=== PATIENT | female | born 2000 | race Caucasian/White ===

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

== ENCOUNTER 2021-05-15 14:00 | Emergency (ER) | payer MEDICAID ==
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
[2021-05-15] MEDS ORDERED: KETAMINE 500 MG/10 ML VIAL IM STA (16:03)
--- NOTE | 2021-05-15 16:28 | ED Physician Documentation ---
Face to Face for Restraints - Immediate Situation Face to Face Evaluation Date: 05/15/21 Face to Face Evaluation Time: 16:45 Restraint Situation: Chemical Patient's Reactions to the Intervention: Physically safe - Behavioral Condition Attitude: Other (resting, asleep, unlabored) Behavior: Other (asleep, safe) Orientation: Non-responsive (sleeping) Mood: Other (sleeping) Behavioral Condition Comments: appropriate response to ketamine, resting quietly - Evaluation Review of Systems: respirations unlabored, 99% room air. HR 100. BP 117/80 Pertinent History/Illicit Drugs/Medications/Results: High functioning autism; unremarkable labs 3 days ago including UDS - Plan Need to Continue or Terminate Violent or Chemical Restraint: We will continue to evaluate behavior once the ketamine has worn off. However she has been re-directable with her dad and brother at the bedside.
[2021-05-15 16:30] LABS: BASOPHILS # (AUTO) 0.1 10^3/uL (0.0-0.1); BASOPHILS % (AUTO) 0.6 %; EOSINOPHILS # (AUTO) 0.1 10^3/uL (0.0-0.7); EOSINOPHILS % (AUTO) 1.4 %; HCT - HEMATOCRIT 39.9 % (37.0-47.0); HGB - HEMOGLOBIN 13.1 g/dL (12.0-16.0); LYMPHOCYTES # (AUTO) 3.2 10^3/uL (1.5-3.5); LYMPHOCYTES % (AUTO) 32.6 %; MEAN CORPUSCULAR HEMOGLOBIN 28.3 pg (27.0-31.0); MEAN CORPUSCULAR HGB CONC 32.8 g/dL (32.0-36.0); MEAN CORPUSCULAR VOLUME 86.2 fL (81.0-99.0); MEAN PLATELET VOLUME 9.5 fL (7.9-10.8); MONOCYTES % (AUTO) 10.3 %; NEUTROPHILS # (AUTO) 5.4 10^3/uL (1.5-6.6); NEUTROPHILS % (AUTO) 54.7 %; PLT - PLATELET COUNT 321 10^3/uL (130-450); RED BLOOD COUNT 4.63 10^6/uL (4.20-5.40); RED CELL DISTRIBUTION WIDTH 12.4 % (12.0-15.0); WHITE BLOOD COUNT 9.9 x10^3/uL (4.8-10.8)
[2021-05-15] MEDS ORDERED: SODIUM CHLORIDE 0.9% 1,000 ML IV STA ×2 (16:30→16:56)
[2021-05-15 16:38] LABS: MUDS CUTOFF CONCENTRATIONS CUTOFF CONC BELOW:
[2021-05-15 16:44] LABS: ACETAMINOPHEN < 10 ug/mL (10-30); ALBUMIN 5.6 g/dL (3.2-5.5); ALBUMIN/GLOBULIN RATIO 1.6 (1.0-2.2); ALKALINE PHOSPHATASE 48 IU/L (42-121); ALT ALANINE AMINOTRANSFERASE 17 IU/L (10-60); AST ASPARTATE AMINOTRANSFERASE 35 IU/L (10-42); BILIRUBIN,TOTAL 0.7 mg/dL (0.2-1.0); BUN - BLOOD UREA NITROGEN 19 mg/dL (6-20); CALCIUM 9.8 mg/dL (8.5-10.3); CARBON DIOXIDE - CO2 24 mmol/L (21-32); CHLORIDE 101 mmol/L (101-111); CREATININE 0.8 mg/dL (0.4-1.0); ETOH - ETHANOL < 5.0 mg/dL; GFR - MDRD 91 (>89); GLUCOSE 103 mg/dL (70-100); LIPASE 35 U/L (22-51); POTASSIUM 3.3 mmol/L (3.5-5.0); SALICYLATE < 6.0 mg/dL; SODIUM 140 mmol/L (135-145)
[2021-05-15 16:46] LABS: BILIRUBIN,URINE NEGATIVE (NEGATIVE); GLUCOSE, URINE (UA) NEGATIVE (NEGATIVE); KETONES,URINE (UA) 40 mg/dL (NEGATIVE); LEUKOCYTE ESTERASE, URINE NEGATIVE (NEGATIVE); NITRITE,URINE POSITIVE (NEGATIVE); OCCULT BLOOD,URINE NEGATIVE (NEGATIVE); PROTEIN,URINE 30 mg/dL (NEGATIVE); UROBILINOGEN,URINE 1 (NORMAL) E.U./dL (NORMAL)
[2021-05-15 16:48] LABS: CLARITY,URINE CLEAR (CLEAR)
[2021-05-15 16:50] LABS: HCG UR QUAL NEGATIVE
[2021-05-15 16:56] LABS: AMPHETAMINE SCREEN,URINE NEGATIVE (NEGATIVE); BARBITURATE SCREEN,UR NEGATIVE (NEGATIVE); BENZODIAZEPINES SCREEN, URINE NEGATIVE (NEGATIVE); COCAINE SCREEN URINE NEGATIVE (NEGATIVE); METHADONE SCREEN, URINE NEGATIVE (NEGATIVE); METHAMPHETAMINES SCREEN, URINE NEGATIVE (NEGATIVE); OPIATE SCREEN, URINE NEGATIVE (NEGATIVE); OXYCODONE SCREEN, URINE NEGATIVE (NEGATIVE); PROPOXYPHENE SCREEN, URINE NEGATIVE (NEGATIVE); THC CANNABINOID SCREEN, URINE NEGATIVE (NEGATIVE); TRICYCLIC ANTIDEPRESSANT,URINE NEGATIVE (NEGATIVE)
[2021-05-15] MEDS ORDERED: cefTRIAXone 1 GM VIAL IVP STA (16:56)
[2021-05-15 16:59] LABS: BACTERIA,URINE Many /HPF (None Seen); RBC,URINE 0-5 /HPF (0-5); SQUAMOUS EPITHELIAL CELL,UR RARE Squamous (<= Few); WBC,URINE 0-3 /HPF (0-5)
[2021-05-15 17:19] LABS: B. PARAPERTUSSIS- RESP PCR PAN NOT DETECTED; B. PERTUSSIS- RESP PCR PANEL NOT DETECTED; C. PNEUMONIAE- RESP PCR PANEL NOT DETECTED; CORONAVIRUS 229E-RESP PCR NOT DETECTED; CORONAVIRUS HKU1-RESP PCR NOT DETECTED; CORONAVIRUS NL63-RESP PCR NOT DETECTED; CORONAVIRUS OC43-RESP PCR NOT DETECTED; HUMAN METAPNEUMOVIRUS NOT DETECTED; INFLUENZA A- RESP PCR PANEL NOT DETECTED; INFLUENZA B - RESP PCR PANEL NOT DETECTED; M. PNEUMONIAE- RESP PCR PANEL NOT DETECTED; PARAINFLUENZA VIRUS 1 NOT DETECTED; PARAINFLUENZA VIRUS 2 NOT DETECTED; PARAINFLUENZA VIRUS 3 NOT DETECTED; PARAINFLUENZA VIRUS 4 NOT DETECTED; RHINOVIRUS/ENTEROVIRUS NOT DETECTED; RSV- RESP PCR PANEL NOT DETECTED; SARS-CoV-2 -RESP PCR PANEL NOT DETECTED
[2021-05-15] MEDS ORDERED: POTASSIUM CHLORIDE 20 MEQ TABLET PO STA (18:50)
[2021-05-15] MEDS ORDERED: ACETAMINOPHEN 325 MG TABLET PO STA (19:08)
[2021-05-15] MEDS ORDERED: ONDANSETRON ODT 4 MG TABLET TL STA (21:53)
--- NOTE | 2021-05-16 02:38 | ED Physician Documentation ---
ED Addendum - Addendum Addendum: 05/16/21 02:36 Patient's CK is mildly uptrending however she is completely asymptomatic and CK does not meet criteria for rhabdomyolysis (5 times upper limit of normal) therefore we will medically clear the patient and go forward with psychiatric admission as discussed with harley Cannon. Dispo Psychiatric inpatient care Impression 1. depression 2. suicidal ideation
[2021-05-16 08:37] VITALS: BP 111/73
== END 2021-05-16 09:00 ==
LOC: ED 14:00
DX: F23 Brief psychotic disorder (principal); F32.A Depression, unspecified; R45.851 Suicidal ideations; R45.850 Homicidal ideations; F84.0 Autistic disorder; N30.90 Cystitis, unspecified without hematuria; R79.89 Other specified abnormal findings of blood chemistry; R00.0 Tachycardia, unspecified; Z20.822 Contact with and (suspected) exposure to COVID-19; Z78.1 Physical restraint status
CPT/HCPCS: 0202U; 36415; 51701; 80053; 80306; 80307; 80320; 80329; 81001; 81025; 82550; 83690; 84443; 85025; 87086; 93005; 96374; 99283; 99285; A9270; Q0162; 81003

== ENCOUNTER 2022-07-16 12:30 | Outpatient (CLI) | payer MEDICAID | END 2022-07-16 12:31 | disposition critical access hospital (66) | LOC: EMS 12:30 | DX: R46.89 Other symptoms and signs involving appearance and behavior (principal); R41.82 Altered mental status, unspecified; T68.XXXA Hypothermia, initial encounter; X31.XXXA Exposure to excessive natural cold, initial encounter | CPT/HCPCS: A0425; A0429; A0999 ==

== ENCOUNTER 2022-07-16 12:50 | Emergency (ER) | payer MEDICAID ==
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
[2022-07-16 13:21] VITALS: BP 126/88
== END 2022-07-16 13:48 | disposition home or self-care (01) ==
LOC: EDUNIT# → ED 12:50
DX: Z00.8 Encounter for other general examination (principal); F84.0 Autistic disorder
CPT/HCPCS: 99283

== ENCOUNTER 2022-08-22 14:47 | Outpatient (CLI) | payer MEDICAID | END 2022-08-22 23:59 | disposition critical access hospital (66) | LOC: EMS 14:47 | DX: T68.XXXA Hypothermia, initial encounter (principal); X31.XXXA Exposure to excessive natural cold, initial encounter; Y92.832 Beach as the place of occurrence of the external cause | CPT/HCPCS: A0425; A0429; A0999 ==

== ENCOUNTER 2022-08-22 15:39 | Emergency (ER) | payer MEDICAID ==
--- OUTSIDE RECORDS SUMMARY | 2022-08-22 15:57 | EXTERNAL MEDICAL SUMMARY RPT | Continuity of Care Document ---
:2000 Author Organization [facility] Address [address] [place] [address] Phone Care Team Providers Name Role Phone Chago Faye Unavailable Unavailable Allergies No information. Encounters No information. Functional Status No information. Immunizations No information. Medications No information. Problems date description facility 2022-08-22 00:00 [facility] Procedures No information. Results/Labs test date author facility value unit interpret ation Result panel 1 (unknown) (no (unknown) (unknown) (no value) (units (unk nown) date) unknown) (unknown) (no (unknown) (unknown) 08/22/22 (units (unkno wn) date) unknown) (unknown) (no (unknown) (unknown) 21-year-old woman (units (unknown) date) with history of unknown) PTSD, autism, and cognitive delay who lives at (unknown) (no (unknown) (unknown) [id number] (units (unkno wn) date) unknown) (unknown) (no (unknown) (unknown) Age/Sex: 21 / F (units (unknown) date) Date of Service: unknown) (unknown) (no (unknown) (unknown) Allergies (units (unkn own) date) unknown) (unknown) (no (unknown) (unknown) [place], [place] (units ( unknown) date) [id number] unknown) (unknown) (no (unknown) (unknown) Attending Dr: (units ( unknown) date) Chago Faye D.O. unknown) (unknown) (no (unknown) (unknown) Autism (units (unkno wn) date) unknown) (unknown) (no (unknown) (unknown) Chief Complaint (units (unknown) date) unknown) (unknown) (no (unknown) (unknown) Chief Complaint: (units (unknown) date) Establish care unknown) (unknown) (no (unknown) (unknown) Conjunctivae: (units ( unknown) date) conjunctivae unknown) normal (unknown) (no (unknown) (unknown) : 2000 (units (unknown) date) Acct:[id number] unknown) (unknown) (no (unknown) (unknown) Dept at (units (unkno wn) date) . unknown) (unknown) (no (unknown) (unknown) Details: (units (unkno wn) date) unknown) (unknown) (no (unknown) (unknown) Documented By: (units (unknown) date) Chago Faye D.O. unknown) 08/22/22 1134 (unknown) (no (unknown) (unknown) Draft (units (unkno wn) date) unknown) (unknown) (no (unknown) (unknown) Exam Narrative (units (unknown) date) unknown) (unknown) (no (unknown) (unknown) Exam Narrative: (units (unknown) date) unknown) (unknown) (no (unknown) (unknown) Exam (units (unkno wn) date) unknown) (unknown) (no (unknown) (unknown) Eyelids: eyelids (units (unknown) date) normal unknown) (unknown) (no (unknown) (unknown) Eyes (units (unkno wn) date) unknown) (unknown) (no (unknown) (unknown) [facility] (units (unknown) date) Office Visit unknown) (unknown) (no (unknown) (unknown) [facility] ([facility]) (unknown) (no (unknown) (unknown) General: (units (unkno wn) date) appearance unknown) normal, both eyes and all related structures (unknown) (no (unknown) (unknown) General: (units (unkno wn) date) cooperative, unknown) healthy appearing and comfortable (unknown) (no (unknown) (unknown) HENMT (units (unkno wn) date) unknown) (unknown) (no (unknown) (unknown) HPI (units (unkno wn) date) unknown) (unknown) (no (unknown) (unknown) Head: normal to (units (unknown) date) inspection unknown) (unknown) (no (unknown) (unknown) Intake (units (unkno wn) date) unknown) (unknown) (no (unknown) (unknown) Loc: [facility] (units (unkno wn) date) unknown) (unknown) (no (unknown) (unknown) Medical History (units (unknown) date) (Reviewed unknown) 05/15/21 @ 05:02 by Meenakshi Madsen MD) (unknown) (no (unknown) (unknown) Neck: normal (units (u nknown) date) visual inspection unknown) (unknown) (no (unknown) (unknown) Neuro: alert and (units (unknown) date) oriented x3, unknown) normal cognition, speech normal, normal gait (unknown) (no (unknown) (unknown) No Known Drug (units ( unknown) date) Allergies Allergy unknown) (Verified 05/14/21 23:49) (unknown) (no (unknown) (unknown) Nose: external (units (unknown) date) nose normal unknown) (unknown) (no (unknown) (unknown) Orientation: (units (u nknown) date) alert and unknown) oriented x3 (unknown) (no (unknown) (unknown) PFSH (units (unkno wn) date) unknown) (unknown) (no (unknown) (unknown) PTSD (units (unkno wn) date) (post-traumatic unknown) stress disorder) (unknown) (no (unknown) (unknown) Patient: (units (unkno wn) date) Siobhan Mercado unknown) MR#: [id number] (unknown) (no (unknown) (unknown) Psych: grossly (units (unknown) date) normal and well unknown) kempt, mental status grossly normal, speech and (unknown) (no (unknown) (unknown) Reason For Visit (units (unknown) date) unknown) (unknown) (no (unknown) (unknown) Resp: normal (units (u nknown) date) respiratory unknown) effort and able to speak in complete sentences (unknown) (no (unknown) (unknown) Sclera: sclerae (units (unknown) date) normal unknown) (unknown) (no (unknown) (unknown) Signed By: (units (unk nown) date) unknown) (unknown) (no (unknown) (unknown) Skin: no rashes (units (unknown) date) or lesions noted unknown) (unknown) (no (unknown) (unknown) Smoking Status: (units (unknown) date) Never smoker unknown) (unknown) (no (unknown) (unknown) This note may (units ( unknown) date) have been all or unknown) partially generated using voice recognition (unknown) (no (unknown) (unknown) Tobacco + (units (unkn own) date) Substance Use unknown) (unknown) (no (unknown) (unknown) Tobacco Status (units (unknown) date) unknown) (unknown) (no (unknown) (unknown) Visit Reasons: (units (unknown) date) [facility] Mental unknown) health-*sae Faye (unknown) (no (unknown) (unknown) have occurred. (units (unknown) date) If there are any unknown) questions, please contact the Medical Records (unknown) (no (unknown) (unknown) home with her (units ( unknown) date) parents presents unknown) to establish care with concern today for (unknown) (no (unknown) (unknown) may occur. (units (unk nown) date) Occasional unknown) wrong-word or 'sound-alike' substitutions may have (unknown) (no (unknown) (unknown) movement normal, (units (unknown) date) congruent mood unknown) (unknown) (no (unknown) (unknown) occurred due to (units (unknown) date) the inherent unknown) limitations of voice recognition software. Please (unknown) (no (unknown) (unknown) read the note (units ( unknown) date) carefully and unknown) recognize, using context, where these substitutions (unknown) (no (unknown) (unknown) software. (units (unkn own) date) Although every unknown) effort is made to edit content, time study clerk errors Result panel 2 (unknown) (no (unknown) (unknown) (no value) (units (unk nown) date) unknown) (unknown) (no (unknown) (unknown) 08/22/22 (units (unkno wn) date) unknown) (unknown) (no (unknown) (unknown) 21-year-old woman (units (unknown) date) with history of unknown) PTSD, autism, and cognitive delay who lives at (unknown) (no (unknown) (unknown) [id number] (units (unkno wn) date) unknown) (unknown) (no (unknown) (unknown) Accompanied by: (units (unknown) date) Father unknown) (unknown) (no (unknown) (unknown) Age/Sex: 21 / F (units (unknown) date) Date of Service: unknown) (unknown) (no (unknown) (unknown) Allergies (units (unkn own) date) unknown) (unknown) (no (unknown) (unknown) [place], [place] (units ( unknown) date) [id number] unknown) (unknown) (no (unknown) (unknown) Attending Dr: (units ( unknown) date) Chago Faye D.O. unknown) (unknown) (no (unknown) (unknown) Autism (units (unkno wn) date) unknown) (unknown) (no (unknown) (unknown) Chief Complaint (units (unknown) date) unknown) (unknown) (no (unknown) (unknown) Chief Complaint: (units (unknown) date) Establish care unknown) (unknown) (no (unknown) (unknown) Conjunctivae: (units ( unknown) date) conjunctivae unknown) normal (unknown) (no (unknown) (unknown) : 2000 (units (unknown) date) Acct:[id number] unknown) (unknown) (no (unknown) (unknown) Dept at (units (unkno wn) date) . unknown) (unknown) (no (unknown) (unknown) Details: (units (unkno wn) date) unknown) (unknown) (no (unknown) (unknown) Documented By: (units (unknown) date) Chago Faye D.O. unknown) 08/22/22 1134 (unknown) (no (unknown) (unknown) Draft (units (unkno wn) date) unknown) (unknown) (no (unknown) (unknown) Exam Narrative (units (unknown) date) unknown) (unknown) (no (unknown) (unknown) Exam Narrative: (units (unknown) date) unknown) (unknown) (no (unknown) (unknown) Exam (units (unkno wn) date) unknown) (unknown) (no (unknown) (unknown) Eyelids: eyelids (units (unknown) date) normal unknown) (unknown) (no (unknown) (unknown) Eyes (units (unkno wn) date) unknown) (unknown) (no (unknown) (unknown) Family Practice (units (unknown) date) Office Visit unknown) (unknown) (no (unknown) (unknown) [facility] ([facility] unknown) (unknown) (no (unknown) (unknown) General: (units (unkno wn) date) appearance unknown) normal, both eyes and all related structures (unknown) (no (unknown) (unknown) General: (units (unkno wn) date) cooperative, unknown) healthy appearing and comfortable (unknown) (no (unknown) (unknown) HENMT (units (unkno wn) date) unknown) (unknown) (no (unknown) (unknown) HPI (units (unkno wn) date) unknown) (unknown) (no (unknown) (unknown) Head: normal to (units (unknown) date) inspection unknown) (unknown) (no (unknown) (unknown) Health (units (unkno wn) date) Management unknown) reviewed with patient: No (unknown) (no (unknown) (unknown) Health (units (unkno wn) date) Management unknown) (unknown) (no (unknown) (unknown) Intake Note: (units (u nknown) date) unknown) (unknown) (no (unknown) (unknown) Intake performed (units (unknown) date) by: unknown) Leonor Kaur (unknown) (no (unknown) (unknown) Intake (units (unkno wn) date) unknown) (unknown) (no (unknown) (unknown) Intake- Clincial (units (unknown) date) Staff unknown) (unknown) (no (unknown) (unknown) Loc: [facility] (units (unkno wn) date) unknown) (unknown) (no (unknown) (unknown) Medical History (units (unknown) date) (Reviewed unknown) 05/15/21 @ 05:02 by Meenakshi Madsen MD) (unknown) (no (unknown) (unknown) WIN[place] 21 yo female (units (unknown) date) presents today to unknown) establish care and discuss mental health (unknown) (no (unknown) (unknown) Neck: normal (units (u nknown) date) visual inspection unknown) (unknown) (no (unknown) (unknown) Neuro: alert and (units (unknown) date) oriented x3, unknown) normal cognition, speech normal, normal gait (unknown) (no (unknown) (unknown) No Known Drug (units ( unknown) date) Allergies Allergy unknown) (Verified 05/14/21 23:49) (unknown) (no (unknown) (unknown) Nose: external (units (unknown) date) nose normal unknown) (unknown) (no (unknown) (unknown) Orientation: (units (u nknown) date) alert and unknown) oriented x3 (unknown) (no (unknown) (unknown) PFSH (units (unkno wn) date) unknown) (unknown) (no (unknown) (unknown) PTSD (units (unkno wn) date) (post-traumatic unknown) stress disorder) (unknown) (no (unknown) (unknown) Patient: (units (unkno wn) date) Siobhan Mercado unknown) MR#: [id number] (unknown) (no (unknown) (unknown) Psych: grossly (units (unknown) date) normal and well unknown) kempt, mental status grossly normal, speech and (unknown) (no (unknown) (unknown) Reason For Visit (units (unknown) date) unknown) (unknown) (no (unknown) (unknown) Requesting (units (unk nown) date) psychiatrist for unknown) assessment for depression, anxiety, and tourrettes (unknown) (no (unknown) (unknown) Resp: normal (units (u nknown) date) respiratory unknown) effort and able to speak in complete sentences (unknown) (no (unknown) (unknown) Sclera: sclerae (units (unknown) date) normal unknown) (unknown) (no (unknown) (unknown) Signed By: (units (unk nown) date) unknown) (unknown) (no (unknown) (unknown) Skin: no rashes (units (unknown) date) or lesions noted unknown) (unknown) (no (unknown) (unknown) Smoking Status: (units (unknown) date) Never smoker unknown) (unknown) (no (unknown) (unknown) This note may (units ( unknown) date) have been all or unknown) partially generated using voice recognition (unknown) (no (unknown) (unknown) Tobacco + (units (unkn own) date) Substance Use unknown) (unknown) (no (unknown) (unknown) Tobacco Status (units (unknown) date) unknown) (unknown) (no (unknown) (unknown) Visit Reasons: (units (unknown) date) [facility] Mental unknown) health-*sae Faye (unknown) (no (unknown) (unknown) have occurred. (units (unknown) date) If there are any unknown) questions, please contact the Medical Records (unknown) (no (unknown) (unknown) home with her (units ( unknown) date) parents presents unknown) to establish care with concern today for (unknown) (no (unknown) (unknown) issues (units (unkno wn) date) unknown) (unknown) (no (unknown) (unknown) may occur. (units (unk nown) date) Occasional unknown) wrong-word or 'sound-alike' substitutions may have (unknown) (no (unknown) (unknown) movement normal, (units (unknown) date) congruent mood unknown) (unknown) (no (unknown) (unknown) occurred due to (units (unknown) date) the inherent unknown) limitations of voice recognition software. Please (unknown) (no (unknown) (unknown) read the note (units ( unknown) date) carefully and unknown) recognize, using context, where these substitutions (unknown) (no (unknown) (unknown) software. (units (unkn own) date) Although every unknown) effort is made to edit content, time study clerk errors Result panel 3 (unknown) (no (unknown) (unknown) (no value) (units (unk nown) date) unknown) (unknown) (no (unknown) (unknown) 08/22/22 (units (unkno wn) date) unknown) (unknown) (no (unknown) (unknown) 12:06 (units (unkno wn) date) unknown) (unknown) (no (unknown) (unknown) 21-year-old (units (un known) date) woman with unknown) history of PTSD, Tourette's behaviors, autism, and (unknown) (no (unknown) (unknown) [id number] (units (unkno wn) date) unknown) (unknown) (no (unknown) (unknown) Accompanied by: (units (unknown) date) Father unknown) (unknown) (no (unknown) (unknown) Age/Sex: 21 / F (units (unknown) date) Date of Service: unknown) (unknown) (no (unknown) (unknown) Allergies (units (unkn own) date) unknown) (unknown) (no (unknown) (unknown) [place] (units ( unknown) date) [id number] unknown) (unknown) (no (unknown) (unknown) Attending Dr: Christalunits ( unknown) date) Chago Faye D.O. unknown) (unknown) (no (unknown) (unknown) Autism (units (unkno wn) date) unknown) (unknown) (no (unknown) (unknown) BMI 17.2 (units (unkno wn) date) unknown) (unknown) (no (unknown) (unknown) BP 126/68 (units (unkn own) date) unknown) (unknown) (no (unknown) (unknown) Blood Pressure (units (unknown) date) Location Lt unknown) brachial (unknown) (no (unknown) (unknown) Chief Complaint (units (unknown) date) unknown) (unknown) (no (unknown) (unknown) Chief Complaint: (units (unknown) date) Establish care unknown) (unknown) (no (unknown) (unknown) Conjunctivae: (units ( unknown) date) conjunctivae unknown) normal (unknown) (no (unknown) (unknown) : 2000 (units (unknown) date) Acct:[id number] unknown) (unknown) (no (unknown) (unknown) Date of Last (units (u nknown) date) Menstrual Period: unknown) 08/08/22 (unknown) (no (unknown) (unknown) Dept at (units (unkno wn) date) . unknown) (unknown) (no (unknown) (unknown) Details: (units (unkno wn) date) unknown) (unknown) (no (unknown) (unknown) Documented By: (units (unknown) date) Chago Faye D.O. unknown) 08/22/22 1134 (unknown) (no (unknown) (unknown) Draft (units (unkno wn) date) unknown) (unknown) (no (unknown) (unknown) Due for pap (units (un known) date) smear unknown) (unknown) (no (unknown) (unknown) Exam Narrative (units (unknown) date) unknown) (unknown) (no (unknown) (unknown) Exam Narrative: (units (unknown) date) unknown) (unknown) (no (unknown) (unknown) Exam (units (unkno wn) date) unknown) (unknown) (no (unknown) (unknown) Eyelids: eyelids (units (unknown) date) normal unknown) (unknown) (no (unknown) (unknown) Eyes (units (unkno wn) date) unknown) (unknown) (no (unknown) (unknown) Family Practice (units (unknown) date) Office Visit unknown) (unknown) (no (unknown) (unknown) [facility] ([facility]) (unknown) (no (unknown) (unknown) General: (units (unkno wn) date) appearance unknown) normal, both eyes and all related structures (unknown) (no (unknown) (unknown) General: (units (unkno wn) date) cooperative, unknown) healthy appearing and comfortable (unknown) (no (unknown) (unknown) HENMT (units (unkno wn) date) unknown) (unknown) (no (unknown) (unknown) HPI (units (unkno wn) date) unknown) (unknown) (no (unknown) (unknown) Head: normal to (units (unknown) date) inspection unknown) (unknown) (no (unknown) (unknown) Health (units (unkno wn) date) Management unknown) reviewed with patient: No (unknown) (no (unknown) (unknown) Health (units (unkno wn) date) Management unknown) (unknown) (no (unknown) (unknown) Height 5 ft 9 in (units (unknown) date) unknown) (unknown) (no (unknown) (unknown) Intake Note: (units (u nknown) date) unknown) (unknown) (no (unknown) (unknown) Intake performed (units (unknown) date) by: unknown) Leonor Kaur (unknown) (no (unknown) (unknown) Intake (units (unkno wn) date) unknown) (unknown) (no (unknown) (unknown) Intake- Clincial (units (unknown) date) Staff unknown) (unknown) (no (unknown) (unknown) Last Menstural (units (unknown) date) Cycle + Details unknown) (unknown) (no (unknown) (unknown) Loc: [facility] (units (unkno wn) date) unknown) (unknown) (no (unknown) (unknown) Medical History (units (unknown) date) (Reviewed unknown) 05/15/21 @ 05:02 by Meenakshi Madsen MD) (unknown) (no (unknown) (unknown) Medications (units (un known) date) unknown) (unknown) (no (unknown) (unknown) [place] 21 yo female (units (unknown) date) presents today to unknown) establish care and discuss mental health (unknown) (no (unknown) (unknown) Neck: normal (units (u nknown) date) visual inspection unknown) (unknown) (no (unknown) (unknown) Neuro: alert and (units (unknown) date) oriented x3, unknown) normal cognition, speech normal, normal gait (unknown) (no (unknown) (unknown) No Known Drug (units ( unknown) date) Allergies Allergy unknown) (Verified 08/22/22 12:06) (unknown) (no (unknown) (unknown) No Known Home (units ( unknown) date) Medications unknown) 08/22/22 [History Confirmed 08/22/22] (unknown) (no (unknown) (unknown) Nose: external (units (unknown) date) nose normal unknown) (unknown) (no (unknown) (unknown) Orientation: (units (u nknown) date) alert and unknown) oriented x3 (unknown) (no (unknown) (unknown) Oxygen Delivery (units (unknown) date) Method room air unknown) (unknown) (no (unknown) (unknown) PFSH (units (unkno wn) date) unknown) (unknown) (no (unknown) (unknown) PTSD (units (unkno wn) date) (post-traumatic unknown) stress disorder) (unknown) (no (unknown) (unknown) Patient: (units (unkno wn) date) Siobhan Mercado unknown) MR#: [id number] (unknown) (no (unknown) (unknown) Position Sitting (units (unknown) date) unknown) (unknown) (no (unknown) (unknown) Psych: grossly (units (unknown) date) normal and well unknown) kempt, mental status grossly normal, speech and (unknown) (no (unknown) (unknown) Pulse 95 H (units (unk nown) date) unknown) (unknown) (no (unknown) (unknown) Pulse Oximetry (units (unknown) date) (%) 97 unknown) (unknown) (no (unknown) (unknown) Pulse Source (units (u nknown) date) Monitor unknown) (unknown) (no (unknown) (unknown) Reason For Visit (units (unknown) date) unknown) (unknown) (no (unknown) (unknown) Requesting (units (unk nown) date) psychiatrist for unknown) assessment for depression, anxiety, and tourrettes (unknown) (no (unknown) (unknown) Resp: normal (units (u nknown) date) respiratory unknown) effort and able to speak in complete sentences (unknown) (no (unknown) (unknown) Sclera: sclerae (units (unknown) date) normal unknown) (unknown) (no (unknown) (unknown) Signed By: (units (unk nown) date) unknown) (unknown) (no (unknown) (unknown) Skin: no rashes (units (unknown) date) or lesions noted unknown) (unknown) (no (unknown) (unknown) Smoking Status: (units (unknown) date) Never smoker unknown) (unknown) (no (unknown) (unknown) Temp 96.6 F L (units ( unknown) date) unknown) (unknown) (no (unknown) (unknown) Temp Source Skin (units (unknown) date) unknown) (unknown) (no (unknown) (unknown) This note may (units ( unknown) date) have been all or unknown) partially generated using voice recognition (unknown) (no (unknown) (unknown) Tobacco + (units (unkn own) date) Substance Use unknown) (unknown) (no (unknown) (unknown) Tobacco Status (units (unknown) date) unknown) (unknown) (no (unknown) (unknown) Visit Reasons: (units (unknown) date) WINDL[facility] Mental unknown) health-*sae Faye (unknown) (no (unknown) (unknown) Vitals (units (unkno wn) date) unknown) (unknown) (no (unknown) (unknown) Weight 117 lb (units ( unknown) date) unknown) (unknown) (no (unknown) (unknown) cognitive delay (units (unknown) date) who lives at home unknown) with her parents presents to establish care (unknown) (no (unknown) (unknown) have occurred. (units (unknown) date) If there are any unknown) questions, please contact the Medical Records (unknown) (no (unknown) (unknown) issues (units (unkno wn) date) unknown) (unknown) (no (unknown) (unknown) may occur. (units (unk nown) date) Occasional unknown) wrong-word or 'sound-alike' substitutions may have (unknown) (no (unknown) (unknown) movement normal, (units (unknown) date) congruent mood unknown) (unknown) (no (unknown) (unknown) occurred due to (units (unknown) date) the inherent unknown) limitations of voice recognition software. Please (unknown) (no (unknown) (unknown) read the note (units ( unknown) date) carefully and unknown) recognize, using context, where these substitutions (unknown) (no (unknown) (unknown) software. (units (unkn own) date) Although every unknown) effort is made to edit content, time study clerk errors (unknown) (no (unknown) (unknown) with concern (units (u nknown) date) today for unknown) Result panel 4 (unknown) (no (unknown) (unknown) (no value) (units (unk nown) date) unknown) (unknown) (no (unknown) (unknown) 08/22/22 (units (unkno wn) date) unknown) (unknown) (no (unknown) (unknown) 12:06 (units (unkno wn) date) unknown) (unknown) (no (unknown) (unknown) 21-year-old (units (un known) date) woman with unknown) history of PTSD, Tourette's behaviors, autism, and (unknown) (no (unknown) (unknown) [id number] (units (unkno wn) date) unknown) (unknown) (no (unknown) (unknown) Accompanied by: (units (unknown) date) Father unknown) (unknown) (no (unknown) (unknown) Age/Sex: 21 / F (units (unknown) date) Date of Service: unknown) (unknown) (no (unknown) (unknown) Allergies (units (unkn own) date) unknown) (unknown) (no (unknown) (unknown) [place] (units ( unknown) date) [id number] unknown) (unknown) (no (unknown) (unknown) Attending Dr: (units ( unknown) date) Chago Faye D.O. unknown) (unknown) (no (unknown) (unknown) Autism (units (unkno wn) date) unknown) (unknown) (no (unknown) (unknown) BMI 17.2 (units (unkno wn) date) unknown) (unknown) (no (unknown) (unknown) BP 126/68 (units (unkn own) date) unknown) (unknown) (no (unknown) (unknown) Blood Pressure (units (unknown) date) Location Lt unknown) brachial (unknown) (no (unknown) (unknown) Chief Complaint (units (unknown) date) unknown) (unknown) (no (unknown) (unknown) Chief Complaint: (units (unknown) date) Establish care unknown) (unknown) (no (unknown) (unknown) Conjunctivae: (units ( unknown) date) conjunctivae unknown) normal (unknown) (no (unknown) (unknown) : 2000 (units (unknown) date) Acct:[id number] unknown) (unknown) (no (unknown) (unknown) Date of Last (units (u nknown) date) Menstrual Period: unknown) 08/08/22 (unknown) (no (unknown) (unknown) Dept at (units (unkno wn) date) . unknown) (unknown) (no (unknown) (unknown) Details: (units (unkno wn) date) unknown) (unknown) (no (unknown) (unknown) Documented By: (units (unknown) date) Chago Faye D.O. unknown) 08/22/22 1134 (unknown) (no (unknown) (unknown) Draft (units (unkno wn) date) unknown) (unknown) (no (unknown) (unknown) Due for pap (units (un known) date) smear unknown) (unknown) (no (unknown) (unknown) Exam Narrative (units (unknown) date) unknown) (unknown) (no (unknown) (unknown) Exam Narrative: (units (unknown) date) unknown) (unknown) (no (unknown) (unknown) Exam (units (unkno wn) date) unknown) (unknown) (no (unknown) (unknown) Eyelids: eyelids (units (unknown) date) normal unknown) (unknown) (no (unknown) (unknown) Eyes (units (unkno wn) date) unknown) (unknown) (no (unknown) (unknown) Family Practice (units (unknown) date) Office Visit unknown) (unknown) (no (unknown) (unknown) [facility] (units ([facility] date[facility] unknown) (unknown) (no (unknown) (unknown) General: (units (unkno wn) date) appearance unknown) normal, both eyes and all related structures (unknown) (no (unknown) (unknown) General: (units (unkno wn) date) cooperative, unknown) healthy appearing and comfortable (unknown) (no (unknown) (unknown) HENMT (units (unkno wn) date) unknown) (unknown) (no (unknown) (unknown) HPI (units (unkno wn) date) unknown) (unknown) (no (unknown) (unknown) Head: normal to (units (unknown) date) inspection unknown) (unknown) (no (unknown) (unknown) Health (units (unkno wn) date) Management unknown) reviewed with patient: No (unknown) (no (unknown) (unknown) Health (units (unkno wn) date) Management unknown) (unknown) (no (unknown) (unknown) Height 5 ft 9 in (units (unknown) date) unknown) (unknown) (no (unknown) (unknown) Intake Note: (units (u nknown) date) unknown) (unknown) (no (unknown) (unknown) Intake performed (units (unknown) date) by: unknown) Leonor Kaur (unknown) (no (unknown) (unknown) Intake (units (unkno wn) date) unknown) (unknown) (no (unknown) (unknown) Intake- Clincial (units (unknown) date) Staff unknown) (unknown) (no (unknown) (unknown) Last Menstural (units (unknown) date) Cycle + Details unknown) (unknown) (no (unknown) (unknown) Loc: [facility] (units (unkno wn) date) unknown) (unknown) (no (unknown) (unknown) Medical History (units (unknown) date) (Reviewed unknown) 05/15/21 @ 05:02 by Meenakshi Madsen MD) (unknown) (no (unknown) (unknown) Medications (units (un known) date) unknown) (unknown) (no (unknown) (unknown) WINDLASSER 21 yo female (units (unknown) date) presents today to unknown) establish care and discuss mental health (unknown) (no (unknown) (unknown) Neck: normal (units (u nknown) date) visual inspection unknown) (unknown) (no (unknown) (unknown) Neuro: alert and (units (unknown) date) oriented x3, unknown) normal cognition, speech normal, normal gait (unknown) (no (unknown) (unknown) No Known Drug (units ( unknown) date) Allergies Allergy unknown) (Verified 08/22/22 12:06) (unknown) (no (unknown) (unknown) No Known Home (units ( unknown) date) Medications unknown) 08/22/22 [History Confirmed 08/22/22] (unknown) (no (unknown) (unknown) Nose: external (units (unknown) date) nose normal unknown) (unknown) (no (unknown) (unknown) Orientation: (units (u nknown) date) alert and unknown) oriented x3 (unknown) (no (unknown) (unknown) Oxygen Delivery (units (unknown) date) Method room air unknown) (unknown) (no (unknown) (unknown) PFSH (units (unkno wn) date) unknown) (unknown) (no (unknown) (unknown) PTSD (units (unkno wn) date) (post-traumatic unknown) stress disorder) (unknown) (no (unknown) (unknown) Patient: (units (unkno wn) date) Siobhan Mercado unknown) MR#: [id number] (unknown) (no (unknown) (unknown) Position Sitting (units (unknown) date) unknown) (unknown) (no (unknown) (unknown) Psych: grossly (units (unknown) date) normal and well unknown) kempt, mental status grossly normal, speech and (unknown) (no (unknown) (unknown) Pulse 95 H (units (unk nown) date) unknown) (unknown) (no (unknown) (unknown) Pulse Oximetry (units (unknown) date) (%) 97 unknown) (unknown) (no (unknown) (unknown) Pulse Source (units (u nknown) date) Monitor unknown) (unknown) (no (unknown) (unknown) Reason For Visit (units (unknown) date) unknown) (unknown) (no (unknown) (unknown) Requesting (units (unk nown) date) psychiatrist for unknown) assessment for depression, anxiety, and tourrettes (unknown) (no (unknown) (unknown) Resp: normal (units (u nknown) date) respiratory unknown) effort and able to speak in complete sentences (unknown) (no (unknown) (unknown) Sclera: sclerae (units (unknown) date) normal unknown) (unknown) (no (unknown) (unknown) Signed By: (units (unk nown) date) unknown) (unknown) (no (unknown) (unknown) Skin: no rashes (units (unknown) date) or lesions noted unknown) (unknown) (no (unknown) (unknown) Smoking Status: (units (unknown) date) Never smoker unknown) (unknown) (no (unknown) (unknown) Temp 96.6 F L (units ( unknown) date) unknown) (unknown) (no (unknown) (unknown) Temp Source Skin (units (unknown) date) unknown) (unknown) (no (unknown) (unknown) This note may (units ( unknown) date) have been all or unknown) partially generated using voice recognition (unknown) (no (unknown) (unknown) Tobacco + (units (unkn own) date) Substance Use unknown) (unknown) (no (unknown) (unknown) Tobacco Status (units (unknown) date) unknown) (unknown) (no (unknown) (unknown) Visit Reasons: (units (unknown) date) WINDLASSER Mental unknown) health-*sae Faye (unknown) (no (unknown) (unknown) Vitals (units (unkno wn) date) unknown) (unknown) (no (unknown) (unknown) Weight 117 lb (units ( unknown) date) unknown) (unknown) (no (unknown) (unknown) cognitive delay (units (unknown) date) who lives at home unknown) with her parents presents to establish care (unknown) (no (unknown) (unknown) have occurred. (units (unknown) date) If there are any unknown) questions, please contact the Medical Records (unknown) (no (unknown) (unknown) issues (units (unkno wn) date) unknown) (unknown) (no (unknown) (unknown) may occur. (units (unk nown) date) Occasional unknown) wrong-word or 'sound-alike' substitutions may have (unknown) (no (unknown) (unknown) movement normal, (units (unknown) date) congruent mood unknown) (unknown) (no (unknown) (unknown) occurred due to (units (unknown) date) the inherent unknown) limitations of voice recognition software. Please (unknown) (no (unknown) (unknown) read the note (units ( unknown) date) carefully and unknown) recognize, using context, where these substitutions (unknown) (no (unknown) (unknown) software. (units (unkn own) date) Although every unknown) effort is made to edit content, time study clerk errors (unknown) (no (unknown) (unknown) with concern (units (u nknown) date) today for setting unknown) referrrals for psychiatry and counseling. Result panel 5 (unknown) (no (unknown) (unknown) (no value) (units (unk nown) date) unknown) (unknown) (no (unknown) (unknown) (1) Autism: (units (un known) date) unknown) (unknown) (no (unknown) (unknown) (2) PTSD (units (unkno wn) date) (post-traumatic unknown) stress disorder): (unknown) (no (unknown) (unknown) (3) Anxiety: (units (u nknown) date) unknown) (unknown) (no (unknown) (unknown) 08/22/22 (units (unkno wn) date) unknown) (unknown) (no (unknown) (unknown) 12:06 (units (unkno wn) date) unknown) (unknown) (no (unknown) (unknown) 21-year-old (units (un known) date) woman with unknown) history of PTSD, Tourette's behaviors, autism, and (unknown) (no (unknown) (unknown) [id number] (units (unkno wn) date) unknown) (unknown) (no (unknown) (unknown) Accompanied by: (units (unknown) date) Father unknown) (unknown) (no (unknown) (unknown) Age/Sex: 21 / F (units (unknown) date) Date of Service: unknown) (unknown) (no (unknown) (unknown) Allergies (units (unkn own) date) unknown) (unknown) (no (unknown) (unknown) [place], [place] (units ( unknown) date) [id number] unknown) (unknown) (no (unknown) (unknown) Anxiety (units (unkno wn) date) unknown) (unknown) (no (unknown) (unknown) Assessment + (units (u nknown) date) Plan unknown) (unknown) (no (unknown) (unknown) Attending Dr: (units ( unknown) date) Chago Faye D.O. unknown) (unknown) (no (unknown) (unknown) Autism (units (unkno wn) date) unknown) (unknown) (no (unknown) (unknown) BMI 17.2 (units (unkno wn) date) unknown) (unknown) (no (unknown) (unknown) BP 126/68 (units (unkn own) date) unknown) (unknown) (no (unknown) (unknown) Blood Pressure (units (unknown) date) Location Lt unknown) brachial (unknown) (no (unknown) (unknown) Chief Complaint (units (unknown) date) unknown) (unknown) (no (unknown) (unknown) Chief Complaint: (units (unknown) date) Establish care unknown) (unknown) (no (unknown) (unknown) Conjunctivae: (units ( unknown) date) conjunctivae unknown) normal (unknown) (no (unknown) (unknown) : 2000 (units (unknown) date) Acct:[id number] unknown) (unknown) (no (unknown) (unknown) Date of Last (units (u nknown) date) Menstrual Period: unknown) 08/08/22 (unknown) (no (unknown) (unknown) Dept at (units (unkno wn) date) . unknown) (unknown) (no (unknown) (unknown) Details: (units (unkno wn) date) unknown) (unknown) (no (unknown) (unknown) Documented By: (units (unknown) date) Chago Faye D.O. unknown) 08/22/22 1134 (unknown) (no (unknown) (unknown) Draft (units (unkno wn) date) unknown) (unknown) (no (unknown) (unknown) Due for pap (units (un known) date) smear unknown) (unknown) (no (unknown) (unknown) Exam Narrative (units (unknown) date) unknown) (unknown) (no (unknown) (unknown) Exam Narrative: (units (unknown) date) unknown) (unknown) (no (unknown) (unknown) Exam (units (unkno wn) date) unknown) (unknown) (no (unknown) (unknown) Eyelids: eyelids (units (unknown) date) normal unknown) (unknown) (no (unknown) (unknown) Eyes (units (unkno wn) date) unknown) (unknown) (no (unknown) (unknown) Family Practice (units (unknown) date) Office Visit unknown) (unknown) (no (unknown) (unknown) [facility]) (unknown) (no (unknown) (unknown) General: (units (unkno wn) date) appearance unknown) normal, both eyes and all related structures (unknown) (no (unknown) (unknown) General: (units (unkno wn) date) cooperative, unknown) healthy appearing and comfortable (unknown) (no (unknown) (unknown) HENMT (units (unkno wn) date) unknown) (unknown) (no (unknown) (unknown) HPI (units (unkno wn) date) unknown) (unknown) (no (unknown) (unknown) Head: normal to (units (unknown) date) inspection unknown) (unknown) (no (unknown) (unknown) Health (units (unkno wn) date) Management unknown) reviewed with patient: No (unknown) (no (unknown) (unknown) Health (units (unkno wn) date) Management unknown) (unknown) (no (unknown) (unknown) Height 5 ft 9 in (units (unknown) date) unknown) (unknown) (no (unknown) (unknown) Intake Note: (units (u nknown) date) unknown) (unknown) (no (unknown) (unknown) Intake performed (units (unknown) date) by: unknown) Leonor Kaur (unknown) (no (unknown) (unknown) Intake (units (unkno wn) date) unknown) (unknown) (no (unknown) (unknown) Intake- Clincial (units (unknown) date) Staff unknown) (unknown) (no (unknown) (unknown) Last Menstural (units (unknown) date) Cycle + Details unknown) (unknown) (no (unknown) (unknown) Loc: [facility] (units (unkno wn) date) unknown) (unknown) (no (unknown) (unknown) Medical History (units (unknown) date) (Updated 08/22/22 unknown) @ 12:15 by Chago Faye DO) (unknown) (no (unknown) (unknown) Medications (units (un known) date) unknown) (unknown) (no (unknown) (unknown) WINDLASSER 21 yo female (units (unknown) date) presents today to unknown) establish care and discuss mental health (unknown) (no (unknown) (unknown) Neck: normal (units (u nknown) date) visual inspection unknown) (unknown) (no (unknown) (unknown) Neuro: alert and (units (unknown) date) oriented x3, unknown) normal cognition, speech normal, normal gait (unknown) (no (unknown) (unknown) No Known Drug (units ( unknown) date) Allergies Allergy unknown) (Verified 08/22/22 12:06) (unknown) (no (unknown) (unknown) No Known Home (units ( unknown) date) Medications unknown) 08/22/22 [History Confirmed 08/22/22] (unknown) (no (unknown) (unknown) Nose: external (units (unknown) date) nose normal unknown) (unknown) (no (unknown) (unknown) Orders: (units (unkno wn) date) unknown) (unknown) (no (unknown) (unknown) Orientation: (units (u nknown) date) alert and unknown) oriented x3 (unknown) (no (unknown) (unknown) Oxygen Delivery (units (unknown) date) Method room air unknown) (unknown) (no (unknown) (unknown) PFSH (units (unkno wn) date) unknown) (unknown) (no (unknown) (unknown) PTSD (units (unkno wn) date) (post-traumatic unknown) stress disorder) (unknown) (no (unknown) (unknown) Patient: (units (unkno wn) date) Siobhan Mercado unknown) MR#: [id number] (unknown) (no (unknown) (unknown) Position Sitting (units (unknown) date) unknown) (unknown) (no (unknown) (unknown) Post-traumatic (units (unknown) date) stress disorder, unknown) unspecified, F84.0 - Autistic disorder (unknown) (no (unknown) (unknown) Psych: grossly (units (unknown) date) normal and well unknown) kempt, mental status grossly normal, speech and (unknown) (no (unknown) (unknown) Pulse 95 H (units (unk nown) date) unknown) (unknown) (no (unknown) (unknown) Pulse Oximetry (units (unknown) date) (%) 97 unknown) (unknown) (no (unknown) (unknown) Pulse Source (units (u nknown) date) Monitor unknown) (unknown) (no (unknown) (unknown) Reason For Visit (units (unknown) date) unknown) (unknown) (no (unknown) (unknown) Referral (units (unkno wn) date) Behavioral Health unknown) F41.9 - Anxiety disorder, unspecified, F43.10 (unknown) (no (unknown) (unknown) Referral (units (unkno wn) date) Psychiatry F41.9 unknown) - Anxiety disorder, unspecified, F43.10 - Post (unknown) (no (unknown) (unknown) Referrals (units (unkn own) date) unknown) (unknown) (no (unknown) (unknown) Requesting (units (unk nown) date) psychiatrist for unknown) assessment for depression, anxiety, and tourrettes (unknown) (no (unknown) (unknown) Resp: normal (units (u nknown) date) respiratory unknown) effort and able to speak in complete sentences (unknown) (no (unknown) (unknown) Sclera: sclerae (units (unknown) date) normal unknown) (unknown) (no (unknown) (unknown) Signed By: (units (unk nown) date) unknown) (unknown) (no (unknown) (unknown) Skin: no rashes (units (unknown) date) or lesions noted unknown) (unknown) (no (unknown) (unknown) Smoking Status: (units (unknown) date) Never smoker unknown) (unknown) (no (unknown) (unknown) Status: Acute (units ( unknown) date) unknown) (unknown) (no (unknown) (unknown) Temp 96.6 F L (units ( unknown) date) unknown) (unknown) (no (unknown) (unknown) Temp Source Skin (units (unknown) date) unknown) (unknown) (no (unknown) (unknown) This note may (units ( unknown) date) have been all or unknown) partially generated using voice recognition (unknown) (no (unknown) (unknown) Tobacco + (units (unkn own) date) Substance Use unknown) (unknown) (no (unknown) (unknown) Tobacco Status (units (unknown) date) unknown) (unknown) (no (unknown) (unknown) Visit Reasons: (units (unknown) date) WINDLASSER Mental unknown) health-*okashly Faye (unknown) (no (unknown) (unknown) Vitals (units (unkno wn) date) unknown) (unknown) (no (unknown) (unknown) Weight 117 lb (units ( unknown) date) unknown) (unknown) (no (unknown) (unknown) cognitive delay (units (unknown) date) who lives at home unknown) with her parents presents to establish care (unknown) (no (unknown) (unknown) have occurred. (units (unknown) date) If there are any unknown) questions, please contact the Medical Records (unknown) (no (unknown) (unknown) issues (units (unkno wn) date) unknown) (unknown) (no (unknown) (unknown) may occur. (units (unk nown) date) Occasional unknown) wrong-word or 'sound-alike' substitutions may have (unknown) (no (unknown) (unknown) movement normal, (units (unknown) date) congruent mood unknown) (unknown) (no (unknown) (unknown) occurred due to (units (unknown) date) the inherent unknown) limitations of voice recognition software. Please (unknown) (no (unknown) (unknown) read the note (units ( unknown) date) carefully and unknown) recognize, using context, where these substitutions (unknown) (no (unknown) (unknown) software. (units (unkn own) date) Although every unknown) effort is made to edit content, time study clerk errors (unknown) (no (unknown) (unknown) traumatic stress (units (unknown) date) disorder, unknown) unspecified, F84.0 - Autistic disorder (unknown) (no (unknown) (unknown) with concern (units (u nknown) date) today for setting unknown) referrrals for psychiatry and counseling. Result panel 6 (unknown) (no (unknown) (unknown) (no value) (units (unk nown) date) unknown) (unknown) (no (unknown) (unknown) (1) Autism: (units (un known) date) unknown) (unknown) (no (unknown) (unknown) (2) PTSD (units (unkno wn) date) (post-traumatic unknown) stress disorder): (unknown) (no (unknown) (unknown) (3) Anxiety: (units (u nknown) date) unknown) (unknown) (no (unknown) (unknown) 08/22/22 (units (unkno wn) date) unknown) (unknown) (no (unknown) (unknown) 1. Little (units (unkn own) date) interest or unknown) pleasure in doing things: nearly every day (unknown) (no (unknown) (unknown) 12:06 (units (unkno wn) date) unknown) (unknown) (no (unknown) (unknown) 2. Feeling down, (units (unknown) date) depressed, or unknown) hopeless: more than half the days (unknown) (no (unknown) (unknown) 21-year-old (units (un known) date) woman with unknown) history of PTSD, Tourette's behaviors, autism, and (unknown) (no (unknown) (unknown) 3. Trouble (units (unk nown) date) falling or unknown) staying asleep, or sleeping too much: nearly every day (unknown) (no (unknown) (unknown) 4. Feeling tired (units (unknown) date) or having little unknown) energy: not at all (unknown) (no (unknown) (unknown) [id number] (units (unkno wn) date) unknown) (unknown) (no (unknown) (unknown) 5. Poor appetite (units (unknown) date) or overeating: unknown) not at all (unknown) (no (unknown) (unknown) 6. Feeling bad (units (unknown) date) about yourself - unknown) or that you are a failure or have let yourself (unknown) (no (unknown) (unknown) 7. Trouble (units (unk nown) date) concentrating on unknown) things, such as reading the newspaper or watching (unknown) (no (unknown) (unknown) 8. Moving or (units (u nknown) date) speaking so unknown) slowly that other people could have noticed? - Or the (unknown) (no (unknown) (unknown) 9. Thoughts that (units (unknown) date) you would be unknown) better off or of hurting yourself in some (unknown) (no (unknown) (unknown) ?: somewhat (units (un known) date) difficult unknown) (unknown) (no (unknown) (unknown) Accompanied by: (units (unknown) date) Father unknown) (unknown) (no (unknown) (unknown) Age/Sex: 21 / F (units (unknown) date) Date of Service: unknown) (unknown) (no (unknown) (unknown) Allergies (units (unkn own) date) unknown) (unknown) (no (unknown) (unknown) [place], [place] (units ( unknown) date) [id number] unknown) (unknown) (no (unknown) (unknown) Anxiety (units (unkno wn) date) unknown) (unknown) (no (unknown) (unknown) Assessment + (units (u nknown) date) Plan unknown) (unknown) (no (unknown) (unknown) Attending Dr: (units ( unknown) date) Chago Faye D.O. unknown) (unknown) (no (unknown) (unknown) Autism (units (unkno wn) date) unknown) (unknown) (no (unknown) (unknown) BMI 17.2 (units (unkno wn) date) unknown) (unknown) (no (unknown) (unknown) BP 126/68 (units (unkn own) date) unknown) (unknown) (no (unknown) (unknown) Becoming easily (units (unknown) date) annoyed or unknown) irritable: 2 = More than half the days (unknown) (no (unknown) (unknown) Being so (units (unkno wn) date) restless that it unknown) is hard to sit still: 2 = More than half the days (unknown) (no (unknown) (unknown) Blood Pressure (units (unknown) date) Location Lt unknown) brachial (unknown) (no (unknown) (unknown) Chief Complaint (units (unknown) date) unknown) (unknown) (no (unknown) (unknown) Chief Complaint: (units (unknown) date) Establish care unknown) (unknown) (no (unknown) (unknown) Conjunctivae: (units ( unknown) date) conjunctivae unknown) normal (unknown) (no (unknown) (unknown) : 2000 (units (unknown) date) Acct:[id number] unknown) (unknown) (no (unknown) (unknown) Date of Last (units (u nknown) date) Menstrual Period: unknown) 08/08/22 (unknown) (no (unknown) (unknown) Depression/Bipol (units (unknown) date) ar unknown) (159/160/161/169/ 177) (unknown) (no (unknown) (unknown) Dept at (units (unkno wn) date) . unknown) (unknown) (no (unknown) (unknown) Details: (units (unkno wn) date) unknown) (unknown) (no (unknown) (unknown) Documented By: (units (unknown) date) Chago Faye D.O. unknown) 08/22/22 1134 (unknown) (no (unknown) (unknown) Draft (units (unkno wn) date) unknown) (unknown) (no (unknown) (unknown) Due for pap (units (un known) date) smear unknown) (unknown) (no (unknown) (unknown) Exam Narrative (units (unknown) date) unknown) (unknown) (no (unknown) (unknown) Exam Narrative: (units (unknown) date) unknown) (unknown) (no (unknown) (unknown) Exam (units (unkno wn) date) unknown) (unknown) (no (unknown) (unknown) Eyelids: eyelids (units (unknown) date) normal unknown) (unknown) (no (unknown) (unknown) Eyes (units (unkno wn) date) unknown) (unknown) (no (unknown) (unknown) Family Practice (units (unknown) date) Office Visit unknown) (unknown) (no (unknown) (unknown) Feeling afraid (units (unknown) date) as if something unknown) awful might happen: 2 = More than half the days (unknown) (no (unknown) (unknown) Feeling nervous, (units (unknown) date) anxious, or on unknown) edge: 2 = More than half the days (unknown) (no (unknown) (unknown) [facility] ([facility] date[facility]) (unknown) (no (unknown) (unknown) [id number] (units (unkno wn) date) unknown) (unknown) (no (unknown) (unknown) General: (units (unkno wn) date) appearance unknown) normal, both eyes and all related structures (unknown) (no (unknown) (unknown) General: (units (unkno wn) date) cooperative, unknown) healthy appearing and comfortable (unknown) (no (unknown) (unknown) HENMT (units (unkno wn) date) unknown) (unknown) (no (unknown) (unknown) HPI (units (unkno wn) date) unknown) (unknown) (no (unknown) (unknown) Head: normal to (units (unknown) date) inspection unknown) (unknown) (no (unknown) (unknown) Health (units (unkno wn) date) Management unknown) reviewed with patient: No (unknown) (no (unknown) (unknown) Health (units (unkno wn) date) Management unknown) (unknown) (no (unknown) (unknown) Height 5 ft 9 in (units (unknown) date) unknown) (unknown) (no (unknown) (unknown) If you checked (units (unknown) date) off any problems, unknown) how difficult have these problems made it for (unknown) (no (unknown) (unknown) Intake Note: (units (u nknown) date) unknown) (unknown) (no (unknown) (unknown) Intake performed (units (unknown) date) by: unknown) Leonor Kaur (unknown) (no (unknown) (unknown) Intake (units (unkno wn) date) unknown) (unknown) (no (unknown) (unknown) Intake- Clincial (units (unknown) date) Staff unknown) (unknown) (no (unknown) (unknown) Last Menstural (units (unknown) date) Cycle + Details unknown) (unknown) (no (unknown) (unknown) Loc: [facility] (units (unkno wn) date) unknown) (unknown) (no (unknown) (unknown) Medical History (units (unknown) date) (Updated 08/22/22 unknown) @ 12:15 by Chago Faye DO) (unknown) (no (unknown) (unknown) Medications (units (un known) date) unknown) (unknown) (no (unknown) (unknown) WINDLASSER 21 yo female (units (unknown) date) presents today to unknown) establish care and discuss mental health (unknown) (no (unknown) (unknown) Neck: normal (units (u nknown) date) visual inspection unknown) (unknown) (no (unknown) (unknown) Neuro: alert and (units (unknown) date) oriented x3, unknown) normal cognition, speech normal, normal gait (unknown) (no (unknown) (unknown) No Known Drug (units ( unknown) date) Allergies Allergy unknown) (Verified 08/22/22 12:06) (unknown) (no (unknown) (unknown) No Known Home (units ( unknown) date) Medications unknown) 08/22/22 [History Confirmed 08/22/22] (unknown) (no (unknown) (unknown) Nose: external (units (unknown) date) nose normal unknown) (unknown) (no (unknown) (unknown) Not being able (units (unknown) date) to stop or unknown) control worryin = More than half the days (unknown) (no (unknown) (unknown) Orders: (units (unkno wn) date) unknown) (unknown) (no (unknown) (unknown) Orientation: (units (u nknown) date) alert and unknown) oriented x3 (unknown) (no (unknown) (unknown) Over the last 2 (units (unknown) date) weeks, how often unknown) have you been bothered by any of the following (unknown) (no (unknown) (unknown) Oxygen Delivery (units (unknown) date) Method room air unknown) (unknown) (no (unknown) (unknown) PFSH (units (unkno wn) date) unknown) (unknown) (no (unknown) (unknown) PHQ-9 (units (unkno wn) date) unknown) (unknown) (no (unknown) (unknown) PTSD (units (unkno wn) date) (post-traumatic unknown) stress disorder) (unknown) (no (unknown) (unknown) Patient: (units (unkno wn) date) Siobhan Mercado unknown) MR#: [id number] (unknown) (no (unknown) (unknown) Position Sitting (units (unknown) date) unknown) (unknown) (no (unknown) (unknown) Post-traumatic (units (unknown) date) stress disorder, unknown) unspecified, F84.0 - Autistic disorder (unknown) (no (unknown) (unknown) Psych: grossly (units (unknown) date) normal and well unknown) kempt, mental status grossly normal, speech and (unknown) (no (unknown) (unknown) Pulse 95 H (units (unk nown) date) unknown) (unknown) (no (unknown) (unknown) Pulse Oximetry (units (unknown) date) (%) 97 unknown) (unknown) (no (unknown) (unknown) Pulse Source (units (u nknon) ) Monitor unknown) (unknown) (no (unknown) (unknown) Quality (units (unkno wn) date) Reporting unknown) (unknown) (no (unknown) (unknown) Questionnaires (units (unknown) date) unknown) (unknown) (no (unknown) (unknown) Reason For Visit (units (unknown) date) unknown) (unknown) (no (unknown) (unknown) Referral (units (o wn) date) Behavioral Health unknown) F41.9 - Anxiety disorder, unspecified, F43.10 (unknown) (no (unknown) (unknown) Referral (units (unkno wn) date) Psychiatry F41.9 unknown) - Anxiety disorder, unspecified, F43.10 - Post (unknown) (no (unknown) (unknown) Referrals (units ( own) date) unknown) (unknown) (no (unknown) (unknown) Requesting (units (k n) ) psychiatrist for unknown) assessment for depression, anxiety, and tourrettes (unknown) (no (unknown) (unknown) Resp: normal (units (u nknown) date) respiratory unknown) effort and able to speak in complete sentences (unknown) (no (unknown) (unknown) Sclera: sclerae (units (unknown) date) normal unknown) (unknown) (no (unknown) (unknown) Signed By: (units (unk n) date) unknown) (unknown) (no (unknown) (unknown) Skin: no rashes (units (unknown) date) or lesions noted unknown) (unknown) (no (unknown) (unknown) Smoking Status: (units (unknown) date) Never smoker unknown) (unknown) (no (unknown) (unknown) Source: (units (o wn) ) Developed by unknown) Ro Graves, Garth Gil (unknown) (no (unknown) (unknown) Status: Acute (units ( unknown) date) unknown) (unknown) (no (unknown) (unknown) Temp 96.6 F L (units ( unknown) date) unknown) (unknown) (no (unknown) (unknown) Temp Source Skin (units (unknown) date) unknown) (unknown) (no (unknown) (unknown) This note may (units ( unknown) date) have been all or unknown) partially generated using voice recognition (unknown) (no (unknown) (unknown) Tobacco + (units (unkn own) date) Substance Use unknown) (unknown) (no (unknown) (unknown) Tobacco Status (units (unknown) date) unknown) (unknown) (no (unknown) (unknown) Total JERRY-7 (units (un known) date) score (0-4 unknown) normal; 5-9 mild; 10-14 moderate; 15-21 severe): 15 (unknown) (no (unknown) (unknown) Total score: 18 (units (unknown) date) unknown) (unknown) (no (unknown) (unknown) Trouble (units (unkno wn) date) relaxin = unknown) More than half the days (unknown) (no (unknown) (unknown) Visit Reasons: (units (unknown) date) [facility] Mental unknown) health-*sae Faye (unknown) (no (unknown) (unknown) Vitals (units (unkno wn) date) unknown) (unknown) (no (unknown) (unknown) Weight 117 lb (units ( unknown) date) unknown) (unknown) (no (unknown) (unknown) Worrying too (units (u nknown) date) much about unknown) different things: 3 = Nearly every day (unknown) (no (unknown) (unknown) and colleagues, (units (unknown) date) with an unknown) educational michael from [employer] (unknown) (no (unknown) (unknown) and your family (units (unknown) date) down: more than unknown) half the days (unknown) (no (unknown) (unknown) cognitive delay (units (unknown) date) who lives at home unknown) with her parents presents to establish care (unknown) (no (unknown) (unknown) have occurred. (units (unknown) date) If there are any unknown) questions, please contact the Medical Records (unknown) (no (unknown) (unknown) issues (units (unkno wn) date) unknown) (unknown) (no (unknown) (unknown) may occur. (units (unk nown) date) Occasional unknown) wrong-word or 'sound-alike' substitutions may have (unknown) (no (unknown) (unknown) more than usual: (units (unknown) date) nearly every day unknown) (unknown) (no (unknown) (unknown) movement normal, (units (unknown) date) congruent mood unknown) (unknown) (no (unknown) (unknown) occurred due to (units (unknown) date) the inherent unknown) limitations of voice recognition software. Please (unknown) (no (unknown) (unknown) opposite - being (units (unknown) date) so fidgety or unknown) restless that you have been moving around a lot (unknown) (no (unknown) (unknown) problems? (units (unkn own) date) unknown) (unknown) (no (unknown) (unknown) read the note (units ( unknown) date) carefully and unknown) recognize, using context, where these substitutions (unknown) (no (unknown) (unknown) software. (units (unkn own) date) Although every unknown) effort is made to edit content, time study clerk errors (unknown) (no (unknown) (unknown) television: (units (un known) date) nearly every day unknown) (unknown) (no (unknown) (unknown) traumatic stress (units (unknown) date) disorder, unknown) unspecified, F84.0 - Autistic disorder (unknown) (no (unknown) (unknown) way: more than (units (unknown) date) half the days unknown) (unknown) (no (unknown) (unknown) with concern (units (u nknown) date) today for setting unknown) referrrals for psychiatry and counseling. (unknown) (no (unknown) (unknown) you to do your (units ( unknown) date) work, take care unknown) of things at home, or get along with other people Result panel 7 (unknown) (no (unknown) (unknown) (no value) (units (unk nown) date) unknown) (unknown) (no (unknown) (unknown) (1) Autism: (units (un known) date) unknown) (unknown) (no (unknown) (unknown) (2) PTSD (units (unkno wn) date) (post-traumatic unknown) stress disorder): (unknown) (no (unknown) (unknown) (3) Anxiety: (units (u nknown) date) unknown) (unknown) (no (unknown) (unknown) 08/22/22 (units (unkno wn) date) unknown) (unknown) (no (unknown) (unknown) 1. Little (units (unkn own) date) interest or unknown) pleasure in doing things: nearly every day (unknown) (no (unknown) (unknown) 12:06 (units (unkno wn) date) unknown) (unknown) (no (unknown) (unknown) 2. Feeling down, (units (unknown) date) depressed, or unknown) hopeless: more than half the days (unknown) (no (unknown) (unknown) 21-year-old (units (un known) date) woman with unknown) history of PTSD, Tourette's behaviors, autism, and (unknown) (no (unknown) (unknown) 3. Trouble (units (unk nown) date) falling or unknown) staying asleep, or sleeping too much: nearly every day (unknown) (no (unknown) (unknown) 4. Feeling tired (units (unknown) date) or having little unknown) energy: not at all (unknown) (no (unknown) (unknown) [id number] (units (unkno wn) date) unknown) (unknown) (no (unknown) (unknown) 5. Poor appetite (units (unknown) date) or overeating: unknown) not at all (unknown) (no (unknown) (unknown) 6. Feeling bad (units (unknown) date) about yourself - unknown) or that you are a failure or have let yourself (unknown) (no (unknown) (unknown) 7. Trouble (units (unk nown) date) concentrating on unknown) things, such as reading the newspaper or watching (unknown) (no (unknown) (unknown) 8. Moving or (units (u nknown) date) speaking so unknown) slowly that other people could have noticed? - Or the (unknown) (no (unknown) (unknown) 9. Thoughts that (units (unknown) date) you would be unknown) better off or of hurting yourself in some (unknown) (no (unknown) (unknown) ?: somewhat (units (un known) date) difficult unknown) (unknown) (no (unknown) (unknown) Accompanied by: (units (unknown) date) Father unknown) (unknown) (no (unknown) (unknown) Age/Sex: 21 / F (units (unknown) date) Date of Service: unknown) (unknown) (no (unknown) (unknown) Allergies (units (unkn own) date) unknown) (unknown) (no (unknown) (unknown) [place], [place] (units ( unknown) date) [id number] unknown) (unknown) (no (unknown) (unknown) Anxiety (units (unkno wn) date) unknown) (unknown) (no (unknown) (unknown) Assessment + (units (u nknown) date) Plan unknown) (unknown) (no (unknown) (unknown) Attending Dr: (units ( unknown) date) Chago Faye D.O. unknown) (unknown) (no (unknown) (unknown) Autism (units (unkno wn) date) unknown) (unknown) (no (unknown) (unknown) BMI 17.2 (units (unkno wn) date) unknown) (unknown) (no (unknown) (unknown) BP 126/68 (units (unkn own) date) unknown) (unknown) (no (unknown) (unknown) Becoming easily (units (unknown) date) annoyed or unknown) irritable: 2 = More than half the days (unknown) (no (unknown) (unknown) Being so (units (unkno wn) date) restless that it unknown) is hard to sit still: 2 = More than half the days (unknown) (no (unknown) (unknown) Blood Pressure (units (unknown) date) Location Lt unknown) brachial (unknown) (no (unknown) (unknown) Chief Complaint (units (unknown) date) unknown) (unknown) (no (unknown) (unknown) Chief Complaint: (units (unknown) date) Establish care unknown) (unknown) (no (unknown) (unknown) Conjunctivae: (units ( unknown) date) conjunctivae unknown) normal (unknown) (no (unknown) (unknown) : 2000 (units (unknown) date) Acct:[id number] unknown) (unknown) (no (unknown) (unknown) Date of Last (units (u nknown) date) Menstrual Period: unknown) 08/08/22 (unknown) (no (unknown) (unknown) Depression/Bipol (units (unknown) date) ar unknown) (159/160/161/169/ 177) (unknown) (no (unknown) (unknown) Dept at (units (unkno wn) date) . unknown) (unknown) (no (unknown) (unknown) Details: (units (unkno wn) date) unknown) (unknown) (no (unknown) (unknown) Documented By: (units (unknown) date) Chago Faye D.O. unknown) 08/22/22 1134 (unknown) (no (unknown) (unknown) Draft (units (unkno wn) date) unknown) (unknown) (no (unknown) (unknown) Due for pap (units (un known) date) smear unknown) (unknown) (no (unknown) (unknown) Exam Narrative (units (unknown) date) unknown) (unknown) (no (unknown) (unknown) Exam Narrative: (units (unknown) date) unknown) (unknown) (no (unknown) (unknown) Exam (units (unkno wn) date) unknown) (unknown) (no (unknown) (unknown) Eyelids: eyelids (units (unknown) date) normal unknown) (unknown) (no (unknown) (unknown) Eyes (units (unkno wn) date) unknown) (unknown) (no (unknown) (unknown) Family Practice (units (unknown) date) Office Visit unknown) (unknown) (no (unknown) (unknown) Feeling afraid (units (unknown) date) as if something unknown) awful might happen: 2 = More than half the days (unknown) (no (unknown) (unknown) Feeling nervous, (units (unknown) date) anxious, or on unknown) edge: 2 = More than half the days (unknown) (no (unknown) (unknown) [facility]) (unknown) (no (unknown) (unknown) JERRY-7 (units (unkno wn) date) unknown) (unknown) (no (unknown) (unknown) General: (units (unkno wn) date) appearance unknown) normal, both eyes and all related structures (unknown) (no (unknown) (unknown) General: (units (unkno wn) date) cooperative, unknown) healthy appearing and comfortable (unknown) (no (unknown) (unknown) HENMT (units (unkno wn) date) unknown) (unknown) (no (unknown) (unknown) HPI (units (unkno wn) date) unknown) (unknown) (no (unknown) (unknown) Head: normal to (units (unknown) date) inspection unknown) (unknown) (no (unknown) (unknown) Health (units (unkno wn) date) Management unknown) reviewed with patient: No (unknown) (no (unknown) (unknown) Health (units (unkno wn) date) Management unknown) (unknown) (no (unknown) (unknown) Height 5 ft 9 in (units (unknown) date) unknown) (unknown) (no (unknown) (unknown) If you checked (units (unknown) date) off any problems, unknown) how difficult have these problems made it for (unknown) (no (unknown) (unknown) Intake Note: (units (u nknown) date) unknown) (unknown) (no (unknown) (unknown) Intake performed (units (unknown) date) by: unknown) Leonor Kaur (unknown) (no (unknown) (unknown) Intake (units (unkno wn) date) unknown) (unknown) (no (unknown) (unknown) Intake- Clincial (units (unknown) date) Staff unknown) (unknown) (no (unknown) (unknown) Last Menstural (units (unknown) date) Cycle + Details unknown) (unknown) (no (unknown) (unknown) Loc: [facility] (units (unkno wn) date) unknown) (unknown) (no (unknown) (unknown) Medical History (units (unknown) date) (Updated 08/22/22 unknown) @ 12:15 by Chago Faye DO) (unknown) (no (unknown) (unknown) Medications (units (un known) date) unknown) (unknown) (no (unknown) (unknown) WIN[place]ER 21 yo female (units (unknown) date) presents today to unknown) establish care and discuss mental health (unknown) (no (unknown) (unknown) Neck: normal (units (u nknown) date) visual inspection unknown) (unknown) (no (unknown) (unknown) Neuro: alert and (units (unknown) date) oriented x3, unknown) normal cognition, speech normal, normal gait (unknown) (no (unknown) (unknown) No Known Drug (units ( unknown) date) Allergies Allergy unknown) (Verified 08/22/22 12:06) (unknown) (no (unknown) (unknown) No Known Home (units ( unknown) date) Medications unknown) 08/22/22 [History Confirmed 08/22/22] (unknown) (no (unknown) (unknown) Nose: external (units (unknown) date) nose normal unknown) (unknown) (no (unknown) (unknown) Not being able (units (unknown) date) to stop or unknown) control worryin = More than half the days (unknown) (no (unknown) (unknown) Orders: (units (unkno wn) date) unknown) (unknown) (no (unknown) (unknown) Orientation: (units (u nknown) date) alert and unknown) oriented x3 (unknown) (no (unknown) (unknown) Over the last 2 (units (unknown) date) weeks, how often unknown) have you been bothered by any of the following (unknown) (no (unknown) (unknown) Oxygen Delivery (units (unknown) date) Method room air unknown) (unknown) (no (unknown) (unknown) PFSH (units (unkno wn) date) unknown) (unknown) (no (unknown) (unknown) PHQ-9 (units (unkno wn) date) unknown) (unknown) (no (unknown) (unknown) PTSD (units (unkno wn) date) (post-traumatic unknown) stress disorder) (unknown) (no (unknown) (unknown) Patient: (units (unkno wn) date) Siobhan Mercado unknown) MR#: [id number] (unknown) (no (unknown) (unknown) Position Sitting (units (unknown) date) unknown) (unknown) (no (unknown) (unknown) Post-traumatic (units (unknown) date) stress disorder, unknown) unspecified, F84.0 - Autistic disorder (unknown) (no (unknown) (unknown) Psych: grossly (units (unknown) date) normal and well unknown) kempt, mental status grossly normal, speech and (unknown) (no (unknown) (unknown) Pulse 95 H (units (unk n) date) unknown) (unknown) (no (unknown) (unknown) Pulse Oximetry (units (unknown) date) (%) 97 unknown) (unknown) (no (unknown) (unknown) Pulse Source (units (u nkn) ) Monitor unknown) (unknown) (no (unknown) (unknown) Quality (units (o wn) date) Reporting unknown) (unknown) (no (unknown) (unknown) Questionnaires (units (unknown) date) unknown) (unknown) (no (unknown) (unknown) Reason For Visit (units (unknown) date) unknown) (unknown) (no (unknown) (unknown) Referral (units (o wn) date) Behavioral Health unknown) F41.9 - Anxiety disorder, unspecified, F43.10 (unknown) (no (unknown) (unknown) Referral (units (o wn) date) Psychiatry F41.9 unknown) - Anxiety disorder, unspecified, F43.10 - Post (unknown) (no (unknown) (unknown) Referrals (units ( own) date) unknown) (unknown) (no (unknown) (unknown) Requesting (units () ) psychiatrist for unknown) assessment for depression, anxiety, and tourrettes (unknown) (no (unknown) (unknown) Resp: normal (units (u nknown) date) respiratory unknown) effort and able to speak in complete sentences (unknown) (no (unknown) (unknown) Sclera: sclerae (units (unknown) date) normal unknown) (unknown) (no (unknown) (unknown) Signed By: (units (unk n) date) unknown) (unknown) (no (unknown) (unknown) Skin: no rashes (units (unknown) date) or lesions noted unknown) (unknown) (no (unknown) (unknown) Smoking Status: (units (unknown) date) Never smoker unknown) (unknown) (no (unknown) (unknown) Source: (units ( wn) ) Developed by unknown) Ro Graves.W. Renny, Garth Gil (unknown) (no (unknown) (unknown) Status: Acute (units ( unknown) date) unknown) (unknown) (no (unknown) (unknown) Temp 96.6 F L (units ( unknown) date) unknown) (unknown) (no (unknown) (unknown) Temp Source Skin (units (unknown) date) unknown) (unknown) (no (unknown) (unknown) This note may (units ( unknown) date) have been all or unknown) partially generated using voice recognition (unknown) (no (unknown) (unknown) Tobacco + (units (unkn own) date) Substance Use unknown) (unknown) (no (unknown) (unknown) Tobacco Status (units (unknown) date) unknown) (unknown) (no (unknown) (unknown) Total JERRY-7 (units (un known) date) score (0-4 unknown) normal; 5-9 mild; 10-14 moderate; 15-21 severe): 15 (unknown) (no (unknown) (unknown) Total score: 18 (units (unknown) date) unknown) (unknown) (no (unknown) (unknown) Trouble (units (unkno wn) date) relaxin = unknown) More than half the days (unknown) (no (unknown) (unknown) Visit Reasons: (units (unknown) date) [facility] Mental unknown) health-*sae Faye (unknown) (no (unknown) (unknown) Vitals (units (unkno wn) date) unknown) (unknown) (no (unknown) (unknown) Weight 117 lb (units ( unknown) date) unknown) (unknown) (no (unknown) (unknown) Worrying too (units (u nknown) date) much about unknown) different things: 3 = Nearly every day (unknown) (no (unknown) (unknown) and colleagues, (units (unknown) date) with an unknown) educational michael from [employer] (unknown) (no (unknown) (unknown) and your family (units (unknown) date) down: more than unknown) half the days (unknown) (no (unknown) (unknown) cognitive delay (units (unknown) date) who lives at home unknown) with her parents presents to establish care (unknown) (no (unknown) (unknown) have occurred. (units (unknown) date) If there are any unknown) questions, please contact the Medical Records (unknown) (no (unknown) (unknown) issues (units (unkno wn) date) unknown) (unknown) (no (unknown) (unknown) may occur. (units (unk nown) date) Occasional unknown) wrong-word or 'sound-alike' substitutions may have (unknown) (no (unknown) (unknown) more than usual: (units (unknown) date) nearly every day unknown) (unknown) (no (unknown) (unknown) movement normal, (units (unknown) date) congruent mood unknown) (unknown) (no (unknown) (unknown) occurred due to (units (unknown) date) the inherent unknown) limitations of voice recognition software. Please (unknown) (no (unknown) (unknown) opposite - being (units (unknown) date) so fidgety or unknown) restless that you have been moving around a lot (unknown) (no (unknown) (unknown) problems? (units (unkn own) date) unknown) (unknown) (no (unknown) (unknown) read the note (units ( unknown) date) carefully and unknown) recognize, using context, where these substitutions (unknown) (no (unknown) (unknown) software. (units (unkn own) date) Although every unknown) effort is made to edit content, time study clerk errors (unknown) (no (unknown) (unknown) television: (units (un known) date) nearly every day unknown) (unknown) (no (unknown) (unknown) traumatic stress (units (unknown) date) disorder, unknown) unspecified, F84.0 - Autistic disorder (unknown) (no (unknown) (unknown) way: more than (units (unknown) date) half the days unknown) (unknown) (no (unknown) (unknown) with concern (units (u nknown) date) today for setting unknown) referrrals for psychiatry and counseling. (unknown) (no (unknown) (unknown) you to do your (units ( unknown) date) work, take care unknown) of things at home, or get along with other people Social History date description facility 2022-08-22 00:00 Never smoked tobacco ([facility] Vital Signs date measurement value units 2022-08-22 00:00 BMI 17.2 kg/m2 2022-08-22 00:00 BP_diastolic 68 mmHg 2022-08-22 00:00 BP_systolic 126 mmHg 2022-08-22 00:00 heart_rate 95 /min 2022-08-22 00:00 height_metric 175.26 cm 2022-08-22 00:00 height_standard 69 in 2022-08-22 00:00 o2_saturation 97 % 2022-08-22 00:00 temperature_metric 35.89 C 2022-08-22 00:00 temperature_standard 96.6 F 2022-08-22 00:00 weight_metric 53.07 kg 2022-08-22 00:00 weight_standard 117 lb
[2022-08-22 16:02] VITALS: BP 130/78
--- NOTE | 2022-08-22 16:04 | ED Physician Documentation ---
PD HPI MHE - Stated complaint Stated Complaint: MHE - Chief complaint Chief Complaint: MHE - History obtained from History obtained from: Patient, Family, EMS - History of Present Illness Pain level max: 0 Pain level now: 0 - Additional information Additional information: Patient is a 21-year-old female brought in by EMS. She has severe autism. She lives at home with family. Her father is here with her. Occasionally she will wander out of the house and when she does she likes to go into the water on the beach. She was found standing in the water on the beach today. Not suicidal or homicidal. Her father is requesting to take her home. Review of Systems Constitutional: denies: Fever, Chills GI: denies: Vomiting : denies: Now EGA Skin: denies: Rash PD PAST MEDICAL HISTORY - Past Medical History Past Medical History: Yes Psych: Other (High functioning autism) - Past Surgical History Past Surgical History: No - Present Medications Home Medications: Ambulatory Orders Medication Instructions Recorded Confirmed No Known Home Medications 02/02/19 05/15/21 - Allergies Allergies/Adverse Reactions: Allergies Allergy/AdvReac Type Severity Reaction Status Date / Time No Known Drug Allergies Allergy Verified 02/02/19 19:48 - Living Situation Living Situation: reports: With family Living Arrangement: reports: At home - Social History Does the pt smoke?: No Smoking Status: Never smoker Does the pt drink ETOH?: Yes - Family History Family history: reports: Non contributory - Immunizations Immunizations: TDAP >10years/unknown PD ED PE NORMAL - Vitals Vital signs reviewed: Yes - General General: No acute distress, Well developed/nourished, Other (Alert, at her mental baseline) - HEENT HEENT: PERRL, Moist mucous membranes, Pharynx benign - Neck Neck: Supple, no meningeal sign - Cardiac Cardiac: RRR - Respiratory Respiratory: No respiratory distress, Clear bilaterally - Abdomen Abdomen: Soft, Non tender, Non distended - Derm Derm: Other (Warm and dry other than cool feet to the touch.) - Extremities Extremities: No edema, No calf tenderness / cord - Neuro Neuro: Other (Alert, at her mental baseline.) - Psych Psych: Normal mood, Normal affect Results - Vitals Vitals: Vital Signs - 24 hr 08/22/22 15:58 Temperature 36.4 C L Heart Rate 87 Respiratory 15 Rate Blood Pressure 130/78 O2 Saturation 98 Oxygen O2 Source Room air PD Medical Decision Making - ED course Complexity details: reviewed old records, considered differential, d/w family ED course: Patient is severely autistic. Lives at home with family. No abnormal vital signs here. No evidence of hypothermia. Father is comfortable taking her home. Social work was consulted and given resources for outpatient psychiatric help. They are working with her doctor to find a local psychiatrist. Father does not feel that hospitalizing the patient would help her. No emergency medical condition at this time. This document was made in part using voice recognition software. While efforts are made to proofread this document, sound alike and grammatical errors may occur. Departure - Departure Disposition: Home, Self Care Clinical Impression: Encounter for medical screening examination, Autism Condition: Good Instructions: Autism Follow-Up: your,doctor in 1 week [Other] Comments: Please follow-up with her doctor for further care. You were also given resources today by the social security specialist to help find outpatient mental health services. Crisis Line and is available to talk to someone [email or web address] is also available to chat with someone online if you prefer. There are also many resources on this website and apps for your phone to help with your mental health You can also text the word START to [phone] to chat with someome via text.
== END 2022-08-22 16:36 | disposition home or self-care (01) ==
LOC: EDUNIT# → ED 15:39
DX: Z03.89 Encounter for observation for other suspected diseases and conditions ruled out (principal); F84.0 Autistic disorder
CPT/HCPCS: 99283

== ENCOUNTER 2022-08-23 17:45 | Emergency (ER) | payer MEDICAID, OTHER ==
--- NOTE | 2022-08-23 17:59 | ED Physician Documentation ---
PD HPI MHE - Stated complaint Stated Complaint: MHE - Chief complaint Chief Complaint: MHE - History obtained from History obtained from: Patient, Police - History of Present Illness Pain level max: 0 Pain level now: 0 - Additional information Additional information: Patient is a 21-year-old female, severely autistic who is brought in by police today. Police state that the social worker health services on scene told them to bring her to the hospital for a "DCR evaluation". They did not bring any paperwork with them. They state that they are unsure why she has been brought to the emergency department, just that they were told to transport. I then contacted hSanna Roberts, social worker health services for [facility] who was reportedly on scene. She states that the patient was darting in and out of traffic [place] [address]. She states that she spoke with the DCR, Mary, who will come to the emergency department and evaluate the patient here. The patient's father was not spoken to by the social worker health services. Patient is unable to give any history. The patient's mother arrived in the emergency department and I spoke with her. She states that the patient did have a psychiatric hospitalization about a year ago. She states that she was hospitalized for about a month. She states that the medications seem to make her daughter worse. Therefore they did stop the medications. They are working on finding an outpatient psychiatrist to follow- up with. Mother states that the patient did seem to be autistic when she was younger, but never had symptoms like she has had over the past 2 years. She was homeschooled in her later teenage years. The mother denies any psychiatric history in the family, on review of the records it appears that the father's mother has a history of schizophrenia Review of Systems Constitutional: denies: Fever, Chills Respiratory: denies: Cough GI: denies: Vomiting PD PAST MEDICAL HISTORY - Past Medical History Past Medical History: Yes Psych: Other (High functioning autism) - Past Surgical History Past Surgical History: No - Present Medications Home Medications: Ambulatory Orders Medication Instructions Recorded Confirmed No Known Home Medications 02/02/19 08/23/22 - Allergies Allergies/Adverse Reactions: Allergies Allergy/AdvReac Type Severity Reaction Status Date / Time No Known Drug Allergies Allergy Verified 08/23/22 17:53 - Social History Does the pt smoke?: No Smoking Status: Never smoker Does the pt drink ETOH?: Yes Does the pt have substance abuse?: No - Immunizations Immunizations are current?: Yes Immunizations: TDAP >10years/unknown - POLST Patient has POLST: No PD ED PE NORMAL - Vitals Vital signs reviewed: Yes - General General: No acute distress, Well developed/nourished, Other (Alert.) - HEENT HEENT: Atraumatic, PERRL, Moist mucous membranes - Neck Neck: Supple, no meningeal sign - Cardiac Cardiac: RRR, Strong equal pulses - Respiratory Respiratory: No respiratory distress, Clear bilaterally - Abdomen Abdomen: Soft, Non tender, Non distended - Derm Derm: Warm and dry - Extremities Extremities: Normal ROM s pain, No edema, No calf tenderness / cord - Neuro Neuro: Other (Alert, at her normal baseline) Results - Vitals Vitals: Vital Signs - 24 hr 08/23/22 08/23/22 08/23/22 17:49 18:20 19:16 Temperature 37.2 C 36.8 C Heart Rate 104 H 97 79 Respiratory 20 18 16 Rate Blood Pressure 118/78 114/70 101/62 O2 Saturation 98 98 100 Oxygen O2 Source Room air - Labs Labs: Laboratory Tests 08/23/22 08/23/22 08/23/22 18:05 18:05 18:05 WBC 7.0 RBC 4.25 Hgb 12.1 Hct 38.5 MCV 90.6 MCH 28.5 MCHC 31.4 L RDW 13.5 Plt Count 284 MPV 9.2 Neut # (Auto) 3.7 Lymph # (Auto) 2.1 Bleckley # (Auto) 0.9 Eos # (Auto) 0.3 Baso # (Auto) 0.1 Absolute Nucleated RBC 0.00 Nucleated RBC % 0.0 Sodium 137 Potassium 3.4 L Chloride 100 L Carbon Dioxide 26 Anion Gap 11.0 BUN 16 Creatinine 0.7 Estimated GFR (MDRD) 106 Glucose 109 H Calcium 9.5 Total Bilirubin 0.3 AST 21 ALT 17 Alkaline Phosphatase 61 Total Protein 7.2 Albumin 4.1 Globulin 3.1 Albumin/Globulin Ratio 1.3 Lipase 35 TSH 1.98 Urine Color Urine Clarity Urine pH Ur Specific Zenia Urine Protein Urine Glucose (UA) Urine Ketones Urine Occult Blood Urine Nitrite Urine Bilirubin Urine Urobilinogen Ur Leukocyte Esterase Ur Microscopic Review Urine Culture Comments Urine HCG, Qual Salicylates < 6.0 Urine Opiates Screen Ur Oxycodone Screen Urine Methadone Screen Ur Propoxyphene Screen Acetaminophen < 10 L Ur Barbiturates Screen Ur Tricyclics Screen Ur Phencyclidine Scrn Ur Amphetamine Screen U Methamphetamines Scrn U Benzodiazepines Scrn Urine Cocaine Screen U Cannabinoids Screen Ethyl Alcohol < 5.0 SARS-CoV-2 (PCR) 08/23/22 08/23/22 18:05 18:15 WBC RBC Hgb Hct MCV MCH MCHC RDW Plt Count MPV Neut # (Auto) Lymph # (Auto) Bleckley # (Auto) Eos # (Auto) Baso # (Auto) Absolute Nucleated RBC Nucleated RBC % Sodium Potassium Chloride Carbon Dioxide Anion Gap BUN Creatinine Estimated GFR (MDRD) Glucose Calcium Total Bilirubin AST ALT Alkaline Phosphatase Total Protein Albumin Globulin Albumin/Globulin Ratio Lipase TSH Urine Color YELLOW Urine Clarity CLEAR Urine pH 6.0 Ur Specific Zenia 1.025 Urine Protein NEGATIVE Urine Glucose (UA) NEGATIVE Urine Ketones NEGATIVE Urine Occult Blood NEGATIVE Urine Nitrite NEGATIVE Urine Bilirubin NEGATIVE Urine Urobilinogen 0.2 (NORMAL) Ur Leukocyte Esterase NEGATIVE Ur Microscopic Review NOT INDICATED Urine Culture Comments NOT INDICATED Urine HCG, Qual NEGATIVE Salicylates Urine Opiates Screen NEGATIVE Ur Oxycodone Screen NEGATIVE Urine Methadone Screen NEGATIVE Ur Propoxyphene Screen NEGATIVE Acetaminophen Ur Barbiturates Screen NEGATIVE Ur Tricyclics Screen NEGATIVE Ur Phencyclidine Scrn NEGATIVE Ur Amphetamine Screen NEGATIVE U Methamphetamines Scrn NEGATIVE U Benzodiazepines Scrn NEGATIVE Urine Cocaine Screen NEGATIVE U Cannabinoids Screen NEGATIVE Ethyl Alcohol SARS-CoV-2 (PCR) NOT DETECTED PD Medical Decision Making - ED course Complexity details: reviewed results, considered differential, d/w patient, d/w family, d/w health consultant ED course: Patient is a 21-year-old female brought in by police on a LONG hold. Reportedly was running in and out of traffic. There seems to be a complex social history as well. Unclear what her actual psychiatric history is. Possible schizophrenia versus schizoaffective disorder? Possibly complicated by autism. She is not on any medications currently. NAVID Hernandez, was consulted and will evaluate the patient. Mary evaluated the patient and will look for a bed. [facility]. Patient is medically clear for psychiatric care. Departure - Departure Clinical Impression: Autism, Psychiatric symptoms Condition: Stable
--- OUTSIDE RECORDS SUMMARY | 2022-08-23 18:04 | EXTERNAL MEDICAL SUMMARY RPT | Continuity of Care Document ---
:2000 Author Organization [facility] Address [address] [place] [address] Phone Care Team Providers Name Role Phone Chago Faye Unavailable Unavailable Allergies No information. Encounters No information. Functional Status No information. Immunizations No information. Medications No information. Problems date description facility 2022-08-22 00:00 Anxiety [facility] 2022-08-23 11:39 Anxiety disorder, unspecified [facility] 2022-08-23 11:39 Post-traumatic stress disorder, unspeci fied [facility] 2022-08-23 11:39 Autistic disorder [facility] Procedures No information. Results/Labs test date author facility value unit interpret ation Result panel 1 (unknown) (no (unknown) (unknown) (no value) (units (unk nown) date) unknown) (unknown) (no (unknown) (unknown) 08/22/22 (units (unkno wn) date) unknown) (unknown) (no (unknown) (unknown) 21-year-old woman (units (unknown) date) with history of unknown) PTSD, autism, and cognitive delay who lives at (unknown) (no (unknown) (unknown) [id number] (units (unkno wn) date) unknown) (unknown) (no (unknown) (unknown) Age/Sex: 21 / F (units (unknown) date) Date of Service: unknown) (unknown) (no (unknown) (unknown) Allergies (units (unkn own) date) unknown) (unknown) (no (unknown) (unknown) [place], [place] (units ( unknown) date) [id number] unknown) (unknown) (no (unknown) (unknown) Attending Dr: [...] (unknown) (unknown) : 2000 (units (unknown) date) Acct:[id number] unknown) (unknown) (no (unknown) (unknown) Dept at [...] (unknown) (unknown) Visit 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 (units [...] unknown) effort is made to edit content, talent advisor errors Result panel 2 (unknown) (no (unknown) (unknown) (no value) (units (unk nown) date) unknown) (unknown) (no (unknown) (unknown) 08/22/22 (units (unkno wn) date) unknown) (unknown) (no (unknown) (unknown) 21-year-old woman (units (unknown) date) with history of unknown) PTSD, autism, and cognitive delay who lives at (unknown) (no (unknown) (unknown) [id number] (units (unkno wn) date) unknown) (unknown) (no (unknown) (unknown) Accompanied by: (units (unknown) date) Father unknown) (unknown) (no (unknown) (unknown) Age/Sex: 21 / F (units (unknown) date) Date of Service: unknown) (unknown) (no (unknown) (unknown) Allergies (units (unkn own) date) unknown) (unknown) (no (unknown) (unknown) [place], [place] (units ( unknown) date) [id number] unknown) (unknown) (no (unknown) (unknown) Attending Dr: [...] (unknown) (unknown) : 2000 (units (unknown) date) Acct:[id number] unknown) (unknown) (no (unknown) (unknown) Dept at [...] Meenakshi Madsen MD) (unknown) (no (unknown) (unknown) 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 (units [...] unknown) effort is made to edit content, talent advisor errors Result panel 3 (unknown) (no (unknown) (unknown) (no value) (units (unk nown) date) unknown) (unknown) (no (unknown) (unknown) 08/22/22 (units (unkno wn) date) unknown) (unknown) (no (unknown) (unknown) 12:06 (units (unkno wn) date) unknown) (unknown) (no (unknown) (unknown) 21-year-old (units (un known) date) woman with unknown) history of PTSD, Tourette's behaviors, autism, and (unknown) (no (unknown) (unknown) [id number] (units (unkno wn) date) unknown) (unknown) (no (unknown) (unknown) Accompanied by: (units (unknown) date) Father unknown) (unknown) (no (unknown) (unknown) Age/Sex: 21 / F (units (unknown) date) Date of Service: unknown) (unknown) (no (unknown) (unknown) Allergies (units (unkn own) date) unknown) (unknown) (no (unknown) (unknown) [place], [place] (units ( unknown) date) [id number] unknown) (unknown) (no (unknown) (unknown) Attending Dr: [...] (unknown) (unknown) : 2000 (units (unknown) date) Acct:[id number] unknown) (unknown) (no (unknown) (unknown) Date of [...] known) date) unknown) (unknown) (no (unknown) (unknown) 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 (unknown) date) presents [...] (unknown) (no (unknown) (unknown) Requesting (units (unk ) date) psychiatrist for unknown) assessment for depression, [...] (unknown) (unknown) Visit 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: (units (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) health-*sae Faye (unknown) (no (unknown) [...] unknown) effort is made to edit content, talent advisor errors (unknown) (no (unknown) (unknown) with concern [...] behaviors, autism, and (unknown) (no (unknown) (unknown) [id number] (units (unkno wn) date) unknown) (unknown) (no (unknown) (unknown) Accompanied by: (units (unknown) date) Father unknown) (unknown) (no (unknown) (unknown) Age/Sex: 21 / F (units (unknown) date) Date of Service: unknown) (unknown) (no (unknown) (unknown) Allergies (units (unkn own) date) unknown) (unknown) (no (unknown) (unknown) [place] (units ( unknown) date) [id number] unknown) (unknown) (no (unknown) (unknown) Attending Dr: [...] (unknown) (unknown) : 2000 (units (unknown) date) Acct:[id number] unknown) (unknown) (no (unknown) (unknown) Date of [...] known) date) unknown) (unknown) (no (unknown) (unknown) 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 (unknown) date) presents [...] (unknown) (unknown) Visit 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: (units (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) health-*sae Faye (unknown) (no (unknown) [...] unknown) effort is made to edit content, talent advisor errors (unknown) (no (unknown) (unknown) with concern [...] behaviors, autism, and (unknown) (no (unknown) (unknown) [id number] (units (unkno wn) date) unknown) (unknown) (no (unknown) (unknown) Accompanied by: (units (unknown) date) Father unknown) (unknown) (no (unknown) (unknown) Age/Sex: 21 / F (units (unknown) date) Date of Service: unknown) (unknown) (no (unknown) (unknown) Allergies (units (unkn own) date) unknown) (unknown) (no (unknown) (unknown) [place], [place] (units ( unknown) date) [id number] unknown) (unknown) (no (unknown) (unknown) Anxiety (units (unkno wn) date) unknown) (unknown) (no (unknown) (unknown) Assessment + (units (u nknown) date) Plan unknown) (unknown) (no (unknown) (unknown) Attending Dr: (units ( unknown) date) Chago ShanksOMirlande unknown) (unknown) (no (unknown) (unknown) Autism (units [...] (unknown) (unknown) : 2000 (units (unknown) date) Acct:[id number] unknown) (unknown) (no (unknown) (unknown) Date of [...] known) date) unknown) (unknown) (no (unknown) (unknown) 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 (unknown) date) presents [...] (unknown) (no (unknown) (unknown) Requesting (units (unk n) ) psychiatrist for unknown) assessment for [...] (unknown) (unknown) Visit Reasons: (units (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) health-*sae Faye (unknown) (no (unknown) [...] unknown) effort is made to edit content, talent advisor errors (unknown) (no (unknown) (unknown) traumatic stress [...] not at all (unknown) (no (unknown) (unknown) [id number] (units (unkno wn) date) unknown) (unknown) (no [...] own) date) unknown) (unknown) (no (unknown) (unknown) [place], [place] (units ( unknown) date) [id number] unknown) (unknown) (no (unknown) (unknown) Anxiety (units [...] (unknown) (unknown) : 2000 (units (unknown) date) Acct:[id number] unknown) (unknown) (no (unknown) (unknown) Date of [...] known) date) unknown) (unknown) (no (unknown) (unknown) 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 (unknown) date) presents [...] Patient: (units (unkno wn) date) Siobhan Mercado L unknown) MR#: [id number] (unknown) (no (unknown) (unknown) [...] (unknown) (unknown) Pulse Source (units (u nknon) date) Monitor unknown) (unknown) (no (unknown) (unknown) Quality [...] unknown) (unknown) (no (unknown) (unknown) Source: (units (unkno wn) date) Developed by unknown) Binh Faith, Ro Lawson, Garth Gil (unknown) (no (unknown) (unknown) Status: [...] (unknown) (unknown) Visit Reasons: (units (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 (unknown) (no (unknown) (unknown) and your [...] unknown) effort is made to edit content, talent advisor errors (unknown) (no (unknown) (unknown) television: (units [...] not at all (unknown) (no (unknown) (unknown) [id number] (units (unkno wn) date) unknown) (unknown) (no [...] own) date) unknown) (unknown) (no (unknown) (unknown) [place], [place] (units ( unknown) date) [id number] unknown) (unknown) (no (unknown) (unknown) Anxiety (units [...] (unknown) (unknown) : 2000 (units (unknown) date) Acct:[id number] unknown) (unknown) (no (unknown) (unknown) Date of [...] known) date) unknown) (unknown) (no (unknown) (unknown) 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 (unknown) date) presents [...] (unknown) (unknown) Patient: (units (unkno wn) date) MercadoSiobhan Katlyn unknown) MR#: [id number] (unknown) (no (unknown) (unknown) [...] (unknown) (unknown) Pulse Source (units (u nknon) date) Monitor unknown) (unknown) (no (unknown) (unknown) Quality [...] (unknown) (no (unknown) (unknown) Requesting (units (unk n) ) psychiatrist for unknown) assessment for [...] unknown) (unknown) (no (unknown) (unknown) Source: (units (unkno wn) date) Developed by unknown) Binh Faith, Ro Lawson, Garth Gil (unknown) (no (unknown) (unknown) Status: [...] (unknown) (unknown) Visit Reasons: (units (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 (unknown) (no (unknown) (unknown) and your [...] unknown) effort is made to edit content, talent advisor errors (unknown) (no (unknown) (unknown) television: (units [...] description facility 2022-08-22 00:00 Never smoked tobacco ([facility] Vital Signs date measurement value units 2022-08-22 [...]
[2022-08-23 18:10] LABS: BASOPHILS # (AUTO) 0.1 10^3/uL (0.0-0.1); BASOPHILS % (AUTO) 0.9 %; EOSINOPHILS # (AUTO) 0.3 10^3/uL (0.0-0.7); HCT - HEMATOCRIT 38.5 % (37.0-47.0); HGB - HEMOGLOBIN 12.1 g/dL (12.0-16.0); LYMPHOCYTES # (AUTO) 2.1 10^3/uL (1.5-3.5); LYMPHOCYTES % (AUTO) 29.5 %; MEAN CORPUSCULAR HEMOGLOBIN 28.5 pg (27.0-31.0); MEAN CORPUSCULAR HGB CONC 31.4 g/dL (32.0-36.0); MEAN CORPUSCULAR VOLUME 90.6 fL (81.0-99.0); MEAN PLATELET VOLUME 9.2 fL (7.9-10.8); MONOCYTES # (AUTO) 0.9 10^3/uL (0.0-1.0); MONOCYTES % (AUTO) 12.7 %; NEUTROPHILS # (AUTO) 3.7 10^3/uL (1.5-6.6); NEUTROPHILS % (AUTO) 52.8 %; PLT - PLATELET COUNT 284 10^3/uL (130-450); RED BLOOD COUNT 4.25 10^6/uL (4.20-5.40); RED CELL DISTRIBUTION WIDTH 13.5 % (12.0-15.0)
[2022-08-23 18:23] LABS: MUDS CUTOFF CONCENTRATIONS CUTOFF CONC BELOW:
[2022-08-23 18:25] LABS: ACETAMINOPHEN < 10 ug/mL (10-30); ALBUMIN 4.1 g/dL (3.2-5.5); ALBUMIN/GLOBULIN RATIO 1.3 (1.0-2.2); ALKALINE PHOSPHATASE 61 IU/L (42-121); ALT ALANINE AMINOTRANSFERASE 17 IU/L (10-60); AST ASPARTATE AMINOTRANSFERASE 21 IU/L (10-42); BILIRUBIN,TOTAL 0.3 mg/dL (0.2-1.0); BUN - BLOOD UREA NITROGEN 16 mg/dL (6-20); CALCIUM 9.5 mg/dL (8.5-10.3); CARBON DIOXIDE - CO2 26 mmol/L (21-32); CHLORIDE 100 mmol/L (101-111); CREATININE 0.7 mg/dL (0.4-1.0); ETOH - ETHANOL < 5.0 mg/dL; GFR - MDRD 106 (>89); GLUCOSE 109 mg/dL (70-100); LIPASE 35 U/L (22-51); POTASSIUM 3.4 mmol/L (3.5-5.0); SALICYLATE < 6.0 mg/dL; SODIUM 137 mmol/L (135-145); TOTAL PROTEIN 7.2 g/dL (6.7-8.2)
[2022-08-23 18:33] LABS: BILIRUBIN,URINE NEGATIVE (NEGATIVE); GLUCOSE, URINE (UA) NEGATIVE (NEGATIVE); KETONES,URINE (UA) NEGATIVE (NEGATIVE); LEUKOCYTE ESTERASE, URINE NEGATIVE (NEGATIVE); NITRITE,URINE NEGATIVE (NEGATIVE); OCCULT BLOOD,URINE NEGATIVE (NEGATIVE); PROTEIN,URINE NEGATIVE (NEGATIVE); UROBILINOGEN,URINE 0.2 (NORMAL) E.U./dL (NORMAL)
[2022-08-23 18:36] LABS: CLARITY,URINE CLEAR (CLEAR); HCG UR QUAL NEGATIVE
[2022-08-23 18:47] LABS: AMPHETAMINE SCREEN,URINE NEGATIVE (NEGATIVE); BARBITURATE SCREEN,UR NEGATIVE (NEGATIVE); BENZODIAZEPINES SCREEN, URINE NEGATIVE (NEGATIVE); COCAINE SCREEN URINE NEGATIVE (NEGATIVE); METHADONE SCREEN, URINE NEGATIVE (NEGATIVE); METHAMPHETAMINES SCREEN, URINE NEGATIVE (NEGATIVE); OPIATE SCREEN, URINE NEGATIVE (NEGATIVE); OXYCODONE SCREEN, URINE NEGATIVE (NEGATIVE); PROPOXYPHENE SCREEN, URINE NEGATIVE (NEGATIVE); THC CANNABINOID SCREEN, URINE NEGATIVE (NEGATIVE); TRICYCLIC ANTIDEPRESSANT,URINE NEGATIVE (NEGATIVE)
[2022-08-24 00:25] LABS: B. PARAPERTUSSIS- RESP PCR PAN NOT DETECTED; B. PERTUSSIS- RESP PCR PANEL NOT DETECTED; C. PNEUMONIAE- RESP PCR PANEL NOT DETECTED; CORONAVIRUS 229E-RESP PCR NOT DETECTED; CORONAVIRUS HKU1-RESP PCR NOT DETECTED; CORONAVIRUS NL63-RESP PCR NOT DETECTED; CORONAVIRUS OC43-RESP PCR NOT DETECTED; HUMAN METAPNEUMOVIRUS NOT DETECTED; INFLUENZA A- RESP PCR PANEL NOT DETECTED; INFLUENZA B - RESP PCR PANEL NOT DETECTED; M. PNEUMONIAE- RESP PCR PANEL NOT DETECTED; PARAINFLUENZA VIRUS 1 NOT DETECTED; PARAINFLUENZA VIRUS 2 NOT DETECTED; PARAINFLUENZA VIRUS 3 NOT DETECTED; PARAINFLUENZA VIRUS 4 NOT DETECTED; RHINOVIRUS/ENTEROVIRUS NOT DETECTED; RSV- RESP PCR PANEL NOT DETECTED; SARS-CoV-2 -RESP PCR PANEL NOT DETECTED
--- NOTE | 2022-08-24 02:40 | ED Physician Documentation ---
ED Addendum - Addendum Addendum: Pt received in signout. Patient has been seen by the DCR. An accepting facility has been found at [facility]. COBRA form signed. Departure - Departure Disposition: [facility] Psych Hosp/Unit DC/Xfer Clinical Impression: Autism, Psychiatric symptoms Condition: Stable
[2022-08-24 06:51] VITALS: BP 139/93
== END 2022-08-24 10:10 ==
LOC: ED 17:45
DX: Z04.6 Encounter for general psychiatric examination, requested by authority (principal); F84.0 Autistic disorder; Z91.128 Patient's intentional underdosing of medication regimen for other reason; Z20.822 Contact with and (suspected) exposure to COVID-19
CPT/HCPCS: 36415; 80053; 80306; 80307; 80320; 80329; 81001; 81003; 81025; 83690; 84443; 85025; 87086; 87633; 93005; 99284; 99285

== ENCOUNTER 2023-12-27 22:48 | Emergency (ER) | payer MEDICAID ==
[2023-12-27 23:04] VITALS: BP 115/79; O2SAT 100
== END 2023-12-27 23:17 | disposition left against medical advice (07) ==
LOC: ED 22:48
DX: Z53.21 Procedure and treatment not carried out due to patient leaving prior to being seen by health care provider (principal)